=== PATIENT | female | born 1955 | race Caucasian/White ===

== ENCOUNTER 2019-01-12 15:44 | Emergency (ER) | payer OTHER ==
[~2019-01-12] VITALS: Ht 185.4 cm; Wt 72.6 kg
--- OUTSIDE RECORDS SUMMARY | ~2019-01-12 | XMS | Encounter Summary ---
Demographics + + + | Address | [address] | | | [place] [address] | + + + | Home Phone | | + + + | Preferred Language | Unknown | + + + | Marital Status | | + + + | Buddhist Affiliation | Unknown | + + + | Race | White | + + + | Ethnic Group | Not or | + + + Author + + + | Author | [facility] | + + + | Organization | [facility] | + + + | Address | Unknown | + + + | Phone | Unavailable | + + + Support + + +---------+ + | Name | Relationship | Address | Phone | + + +---------+ + | Freeman Mcdonnell | ECON | Unknown | | + + +---------+ + Care Team Providers + +------+ + | Care Partnership Development Manager Name | Role | Phone | + +------+ + | Hemanth Hope | PCP | | + +------+ + Encounter Details +--------+ + + + + | Date | Type | Department | Care Team | Description | +--------+ + + + + | 11/08/ | Inside | [facility] | Hemanth Hope, | | | 2018 | Referral | [facility] [address] | | | | Order | [address] | [facility], [place] | | | | | [place] | [address] | | | | | [address] | | | +--------+ + + + + Social History + +-------+ +--------+------+ | Tobacco Use | Types | Packs/Day | Years | Date | | | | | Used | | + +-------+ +--------+------+ | Never Smoker | | | | | + +-------+ +--------+------+ + + + | Sex Assigned at | Date Recorded | | | | + + + | Not on file | | + + + + + + + | Job Start Date | Occupation | Industry | + + + + | Not on file | Not on file | Not on file | + + + + + + + + | Travel History | Travel Start | Travel End | + + + + + + | No recent travel history available. | + + documented as of this encounter Plan of Treatment Not on filedocumented as of this encounter Visit Diagnoses + + | Diagnosis | + + | Osteopenia, unspecified location - Primary | + + documented in this encounter"
--- OUTSIDE RECORDS SUMMARY | ~2019-01-12 | XMS | Encounter Summary ---
Demographics + + + | Address | [address] | | | [place] [address] | + + + | Home Phone | | + + + | Preferred Language | Unknown | + + + | Marital Status | | + + + | Mormonism Affiliation | Unknown | + + + | Race | White | + + + | Ethnic Group | Not or | + + + Author + + + | Author | [facility] | + + + | Organization | [facility] | + + + | Address | Unknown | + + + | Phone | Unavailable | + + + Support + + +---------+ + | Name | Relationship | Address | Phone | + + +---------+ + | Freeman Mcdonnell | ECON | Unknown | | + + +---------+ + Care Team Providers + +------+ + | Care Chief Inspector Name | Role | Phone | + +------+ + | Blake Weber | PCP | Unavailable | + +------+ + Encounter Details +--------+ + + + + | Date | Type | Department | Care Team | Description | +--------+ + + + + | 10/31/ | Telephone | Otolaryngology | Angeles Titus, | | | 2006 | | Endocrinology | MD [address] | | | | | Thyroid Services at | [facility] | | | | | PPV [address] | [place], [place] | | | | | [facility] | [address] | | | | | Mailcode: [id number] | [phone] | | | | | [facility] | | | | | | [place], [place] | | | | | | [address] | | | | | | [phone] | | | +--------+ + + + + Social History + +-------+ +--------+------+ | Tobacco Use | Types | Packs/Day | Years | Date | | | | | Used | | + +-------+ +--------+------+ | Never Assessed | | | | | + +-------+ [...] filedocumented as of this encounter Visit Diagnoses Not on filedocumented in this encounter"
--- OUTSIDE RECORDS SUMMARY | ~2019-01-12 | XMS | Encounter Summary ---
Demographics + + + | Address | [address] | | | [place] [address] | + + + | Home Phone | | + + + | Preferred Language | Unknown | + + + | Marital Status | | + + + | Confucianism Affiliation | Unknown | + + + | Race | White | + + + | Ethnic Group | Not or | + + + Author + + + | Author | [facility] | + + + | Organization | [facility] | + + + | Address | Unknown | + + + | Phone | Unavailable | + + + Support + + +---------+ + | Name | Relationship | Address | Phone | + + +---------+ + | Freeman Mcdonnell | ECON | Unknown | | + + +---------+ + Care Team Providers + +------+ + | Care Chief Drafter Name | Role | Phone | + +------+ + | Blake Weber | PCP | Unavailable | + +------+ + Encounter Details +--------+ + + + + | Date | Type | Department | Care Team | Description | +--------+ + + + + | 10/31/ | Abstract | Otolaryngology | Angeles Titus, | | | 2006 | | Endocrinology | MD [address] | | | | | Thyroid Services at | [facility] [address] | | | | | PPV [address] | [place], [place] | | | | | [facility] [address] | [address] | | | | | Mailcode: [id number] | [phone] | | | | | [facility] | | | | | | [place], [place] | | | | | | [address] | | | | | | [phone] | | | +--------+ + + + [...] Not on filedocumented as of this encounter Procedures + +--------+ + + + | Procedure Name | Priori | Date/Time | Associated Diagnosis | Comments | | | ty | | | | + +--------+ + + + | FREE T4 | Routin | 10/21/2006 | | Results for this | | | e | | | procedure are in the | | | | | | results section. | + +--------+ + + + | TSH | Routin | 10/21/2006 | | Results for this | | | e | | | procedure are in the | | | | | | results section. | + +--------+ + + + documented in this encounter Results TSH-THYROID STIM HORMONE (10/21/2006) + + + + + + | Component | Value | Ref Range | Performed | Pathologist | | | | | At | Signature | + + + + + + | TSH | 0.25 (A) | 0.34 - 5.6 | OUTSIDE LAB | | | | | uIU/ml | | | + + + + + + + + | Specimen | + + | | + + + +---------+ + + | Performing | Address | City/State/Zipcode | Phone Number | | Organization | | | | + +---------+ + + | NON [facility] | | | | + +---------+ + + | OUTSIDE LAB | | | | + +---------+ + + FREE T4, SERUM (10/21/2006) + +-------+ + + + | Component | Value | Ref Range | Performed | Pathologist | | | | | At | Signature | + +-------+ + + + | FREE T4, | 0.9 | 0.58 - 1.64 | OUTSIDE LAB | | | SERUM | | ng/dL | | | + +-------+ + + + + + | Specimen | + + | | + + + +---------+ + + | Performing | Address | City/State/Zipcode | Phone Number | | Organization | | | | + +---------+ + + | NON [facility] | | | | + +---------+ + + | OUTSIDE LAB | | | | + +---------+ + + documented in this encounter Visit Diagnoses Not on filedocumented in this encounter"
--- OUTSIDE RECORDS SUMMARY | ~2019-01-12 | XMS | Encounter Summary ---
Demographics + + + | Address | [address] | | | [place] [address] | + + + | Home Phone | | + + + | Preferred Language | Unknown | + + + | Marital Status | | + + + | Jew Affiliation | Unknown | + + + | Race | White | + + + | Ethnic Group | Not or | + + + Author + + + | Author | [facility] | + + + | Organization | [facility] | + + + | Address | Unknown | + + + | Phone | Unavailable | + + + Support + + +---------+ + | Name | Relationship | Address | Phone | + + +---------+ + | Freeman Mcdonnell | ECON | Unknown | | + + +---------+ + Care Team Providers + +------+ + | Care Laboratory Operations Coordinator Name | Role | Phone | + +------+ + | Blake Weber | PCP | Unavailable | + +------+ + Encounter Details +--------+ + + + + | Date | Type | Department | Care Team | Description | +--------+ + + + + | 10/03/ | Telephone | Otolaryngology | Angeles Titus, | | | 2006 | | Thyroid Services at | MD [address] | | | | | PPV [address] | [address] | | | | | [address] | [place], [place] | | | | | Mailcode: [id number] | [address] | | | | | [facility] | [phone] | | | | | [place], [place] | | | | | | [address] | | | | | | [phone] | | | +--------+ + + + [...]
--- OUTSIDE RECORDS SUMMARY | ~2019-01-12 | XMS | Encounter Summary ---
Demographics + + + | Address | [address] | | | [place] [address] | + + + | Home Phone | | + + + | Preferred Language | Unknown | + + + | Marital Status | | + + + | Christian Affiliation | Unknown | + + + | Race | White | + + + | Ethnic Group | Not or | + + + Author + + + | Author | [facility] | + + + | Organization | [facility] | + + + | Address | Unknown | + + + | Phone | Unavailable | + + + Support + + +---------+ + | Name | Relationship | Address | Phone | + + +---------+ + | Freeman Mcdonnell | ECON | Unknown | | + + +---------+ + Care Team Providers + +------+ + | Care Airplane Navigator Name | Role | Phone | + [...] | | | Thyroid Services at | [facility] | | | | | PPV [address] | [place], [place] | | | | | [facility] | [address] | | | | | Mailcode: [id number] | [phone] | | | | | [facility] | | | | | | [place], [place] | | | | | | [address] | | | | | | [phone] | | | +--------+ + + + [...]
--- OUTSIDE RECORDS SUMMARY | ~2019-01-12 | XMS | Encounter Summary ---
Demographics + + + | Address | [address] | | | [place] [address] | + + + | Home Phone | | + + + | Preferred Language | Unknown | + + + | Marital Status | | + + + | Jainism Affiliation | Unknown | + + + | Race | White | + + + | Ethnic Group | Not or | + + + Author + + + | Author | [facility] | + + + | Organization | [facility] | + + + | Address | Unknown | + + + | Phone | Unavailable | + + + Support + + +---------+ + | Name | Relationship | Address | Phone | + + +---------+ + | Freeman Mcdonnell | ECON | Unknown | | + + +---------+ + Care Team Providers + +------+ + | Care [employer] Compliance Internship Name | Role | Phone | + +------+ + | Blake Weber PCP | Unavailable | + +------+ + Encounter Details +--------+ + + + + | Date | Type | Department | Care Team | Description | +--------+ + + + + | 08/08/ | Results | LAB CORE [address] | Marcos [address]e | | | 1998 | Only | [address] | [phone] | | | | | [place], [place] | | | | | | [address] | | | | | | [phone] | | | +--------+ + + + [...] | + +--------+ + + + | DERMATOPATHOLOGY(CON | Routin | 08/08/1998 | | Results for this | | SULT) | e | | | procedure are in the | | | | | | results section. | + +--------+ + + + documented in this encounter Results DERMATOPATHOLOGY(CONSULT) (08/08/1998) + + + + + + | Component | Value | Ref Range | Performed | Pathologist | | | | | At | Signature | + + + + + + | DERMATOPATH | SOURCE OF SPECIMEN: SEE | | [facility] | | | (CONSULT) | RESULTS | | DEPARTMENT | | | | Preliminary | | OF | | | | History:CLINICAL | | PATHOLOGY | | | | HISTORYShave, Rt. | | | | | | superior eyebrow; crusty | | | | | | papule; LPLK, atypical | | | | | | melanocytes? | | | | | | Dear Fady: I agree | | | | | | entirely with you | | | | | | regarding Salena | | | | | | Sathya's superiorright | | | | | | eyebrow skin biopsy | | | | | | where there is focal | | | | | | parakeratosis, | | | | | | hyper-granulosis, | | | | | | epidermal hyperplasia, | | | | | | thickening of the | | | | | | papillary dermis ramos | | | | | | band-like | | | | | | lymphohistiocytic | | | | | | infiltrate throughout | | | | | | the upper part of | | | | | | thedermis. FINAL | | | | | | DIAGNOSISLICHEN | | | | | | PLANUS-LIKE | | | | | | KERATOSIS. There | | | | | | is no evidence to | | | | | | suggest a primary | | | | | | melanocytic neoplasm, | | | | | | such asmelanoma. | | | | | | Thanks for referring | | | | | | this consultation.1 | | | | | | slide [id number] | | | | | | returned to | | | | | | Toni. | | | | | | CRW:mm | | | | | | 08/12/98 My | | | | | | electronic signature | | | | | | indicates that I have | | | | | | personally reviewed | | | | | | alldiagnostic slides, | | | | | | the gross and/or | | | | | | microscopic portion of | | | | | | thisreport and | | | | | | formulated the final | | | | | | diagnosis. | | | | + + + + + + + + | Specimen | + + | Other | + + + + + + + | Performing | Address | City/State/Zipcode | Phone Number | | Organization | | | | + + + + + | [facility] | [address] | [place] [address] | | | PATHOLOGY | [place] | | | + + + + + | [facility] | [address] | [place] [address] | | | PATHOLOGY | [place] | | | + + + + + documented in this encounter Visit Diagnoses Not on filedocumented in this encounter"
--- OUTSIDE RECORDS SUMMARY | ~2019-01-12 | XMS | Encounter Summary ---
Demographics + + + | Address | [address] | | | [place] [address] | + + + | Home Phone | | + + + | Preferred Language | Unknown | + + + | Marital Status | | + + + | Gnosticist Affiliation | Unknown | + + + | Race | White | + + + | Ethnic Group | Not or | + + + Author + + + | Author | [facility] | + + + | Organization | [facility] | + + + | Address | Unknown | + + + | Phone | Unavailable | + + + Support + + +---------+ + | Name | Relationship | Address | Phone | + + +---------+ + | Freeman Mcdonnell | ECON | Unknown | | + + +---------+ + Care Team Providers + +------+ + | Care Golf Superintendent Name | Role | Phone | + +------+ + | Hemanth Hope | PCP | | + +------+ + Encounter Details +--------+ + + + + | Date | Type | Department | Care Team | Description | +--------+ + + + + | 03/22/ | Ancillary | [facility] | | | | 2004 | Registratio | Practice [address] | | | | | n | [facility] | | | | | | [place] [address] | | | | | | [phone] | | | +--------+ + + + [...]
--- OUTSIDE RECORDS SUMMARY | ~2019-01-12 | XMS | Encounter Summary ---
Demographics + + + | Address | [address] | | | [place] [address] | + + + | Home Phone | | + + + | Preferred Language | Unknown | + + + | Marital Status | | + + + | Yazidi Affiliation | Unknown | + + + | Race | White | + + + | Ethnic Group | Not or | + + + Author + + + | Organization | Unknown | + + + | Address | Unknown | + + + | Phone | Unavailable | + + + Support + + +---------+ + | Name | Relationship | Address | Phone | + + +---------+ + | Freeman Newberry | ECON | Unknown | | + + +---------+ + Care Team Providers + +------+ + | Care Middleware Developer Name | Role | Phone | + +------+ + PCP | Unavailable | + +------+ + Encounter Details +--------+ + + + + | Date | Type | Department | Care Team | Description | +--------+ + + + + | 11/27/ | Letter-Reyes | | Letters, Other | Letters | | 2003 | scribed | | | | +--------+ + + + [...] + + documented as of this encounter Progress Notes Interface, Physical Therapist In - 10/08/2005 3:04 AM [place] [facility] [place] [address] [place], [place] [address] or November 27, 2002 Cesia Delatorre [facility] [address] [place] [id number] RE: SALENA NEWBERRY MR #: [id number] Dear Dr. Delatorre: Thank you for your recent referral of your patient, Salena Newberry, to the Thyroid Tumor Clinic. I saw the patient with my fellow, Dr. Cole Jalloh. We discussed her history, performed a physical examination, and discussed the assessment and plan. His detailed note on this will be sent to you separately. However, I wanted to summarize our results and discuss our recommendations. As you are aware, she was diagnosed with papillary thyroid cancer several years ago, and on subsequent followup, scans have not shown evidence of recurrence. She remains on thyroid hormone suppression which she has tolerated without known problems; however, there is some concern about osteoporosis in the family. Therefore, one question that was raised is whether or not she needs to be on this much thyroid hormone suppression and what degree of followup on her thyroid cancer is necessary. She does have some mild symptoms which could easily be related to hypothyroidism and most notable are some mild palpitations, early a.m. awakening, and significant muscle tension most notable in the upper back and neck area. She remains on levothyroxine at 200 mcg a day, and her last TSH did show suppressed levels with a TSH of 0.03. Of note, she has a very interesting family history with a father who had a diagnosis of thyroid cancer, multiple myeloma, and then of a renal carcinoma. This is important to understand given that there are familial forms of thyroid cancer including familial papillary thyroid cancers. With familial papillary cancer syndromes, they appear to be a RET gale-oncogene mutation and do not appear to increase the malignant tendencies of thyroid cancer. We did review Salena's pathology report, and this indicate a papillary thyroid cancer and not a medullary thyroid cancer; so, we are not currently concerned about a familial endocrine syndrome that would include medullary thyroid cancer. However, it would be interesting to get information on her father's thyroid cancer just to make sure this is not a concern. I will ask Salena to try and find information on her father's thyroid cancer. However, assuming that this is papillary thyroid cancer even a familial papillary thyroid cancer syndrome, she has no evidence of recurrence, and my recommendation to her is to get a baseline thyroglobulin measurement. This is a very sensitive way of documenting any recurrent thyroid tissue. We have been using this routinely for the last few years and along with a TSH value can serve as a good yearly screening test. We did this and her baseline thyroglobulin did come back undetectable again consistent with no evidence of recurrent thyroid cancer. If it had been measurable, I would have recommended a stimulated thyroglobulin test along with a repeat radioactive iodine scan to look for evidence of recurrent disease. However, since it is negative, I do not recommend this and instead feel that she should have a yearly neck exam, TSH evaluation, and thyroglobulin evaluation. Because of her low risk of recurrence, but risks for other complications due to the thyroid hormone, I would recommend decreasing her current l-thyroxine dose to 0.175 to 0.188 mg a day to bring her TSH up closer to the normal range. What this would do would be to shift the focus of therapy to prevention of recurrence but also prevention of complications related to the thyroid hormone. If there is evidence of recurrence in the future, we would need to reevaluate her risk and potentially increase her thyroid hormone dose, but at this time, I would recommend decreasing her thyroid dose and bringing the TSH in the range of 0.3 to 0.6. In addition, she wanted to know when a repeat bone densitometry test should be done. Her previous one showed that she had excellent higher than normal bone mass. This is good, but she will be at a risk for bone loss when she enters menopause. Therefore, we have recommended that when menopause begins, she does have a repeat bone densitometry evaluation. Finally, she notes that she has been on control pills for some time but is not having withdrawal bleeding. This is not consistent with her degree of hypothyroidism, although it could certainly be worsened by it. I would recommend that this be evaluated to make sure that this is not due to an obstruction of the outflow tract or other unrelated problems, and one easy response would be to make sure she does respond to her Provera challenge. Therefore, at this time, she has no evidence of recurrent thyroid cancer and appears to be at low risk for this. I would like to see the results of her father's thyroid cancer pathology, but feel that in general, she is at very low risk of recurrence and would recommend decreasing her thyroid hormone dose, to keep her TSH in the more normal range, and then have yearly followup. If you have questions regarding this, please call me. Again, it was a pleasure to meet your patient. Sincerely, Angeles Romero M.D. SHILPI / LILIBETH [id number] / [id number] / [id number] / Tdocumented in this encounter Plan of Treatment Not on filedocumented as of this encounter Visit Diagnoses Not on filedocumented in this encounter"
--- OUTSIDE RECORDS SUMMARY | ~2019-01-12 | XMS | Encounter Summary ---
Demographics + + + | Address | [address] | | | [place] [address] | + + + | Home Phone | | + + + | Preferred Language | Unknown | + + + | Marital Status | | + + + | Taoist Affiliation | Unknown | + + + [...] Team Providers + +------+ + | Care Production Tester Name | Role | Phone | + [...] as of this encounter Progress Notes Interface, Motel Keeper In - 10/08/2005 3:04 AM [place]H [place] [facility] [place] [address] [place], [place] [address] or November 27, 2002 Cesia Delatorre [facility] [address] [place] [address] RE: SALENA NEWBERRY MR #: [id number] Dear Dr. Delatorre: Thank you for your [...] Sincerely, Angeles Romero M.D. SHILPI / LILIBETH [id number] / [id number] / [id number] / Tdocumented in this encounter Plan of Treatment Not on filedocumented as of this encounter Visit Diagnoses Not on filedocumented in this encounter"
--- OUTSIDE RECORDS SUMMARY | ~2019-01-12 | XMS | Encounter Summary ---
Demographics + + + | Address | [address] | | | [place] [address] | + + + | Home Phone | | + + + | Preferred Language | Unknown | + + + | Marital Status | | + + + | Adventist Affiliation | Unknown | + + + | Race | White | + + + | Ethnic Group | Not or | + + + Author + + + | Author | [facility] | + + + | Organization | [facility] | + + + | Address | Unknown | + + + | Phone | Unavailable | + + + Support + + +---------+ + | Name | Relationship | Address | Phone | + + +---------+ + | Freeman Mcdonnell | ECON | Unknown | | + + +---------+ + Care Team Providers + +------+ + | Care Games Dealer Name | Role | Phone | + +------+ + | Blake Weber | PCP | Unavailable | + +------+ + Encounter Details +--------+ + + + + | Date | Type | Department | Care Team | Description | +--------+ + + + + | 10/11/ | Telephone | Otolaryngology | Angeles Titus, | | | 2006 | | Thyroid Services at | MD [address] | | | | | PPV [address] | [address] | | | | | [address] | [place], [place] | | | | | Mailcode: [id number] | [address] | | | | | [facility] | [phone] | | | | | [place], [place] | | | | | | [address] | | | | | | [phone] | | | +--------+ + + + [...]
--- OUTSIDE RECORDS SUMMARY | ~2019-01-12 | XMS | Encounter Summary ---
Demographics + + + | Address | [address] | | | [place] [address] | + + + | Home Phone | | + + + | Preferred Language | Unknown | + + + | Marital Status | | + + + | Synagogue Affiliation | Unknown | + + + [...] Team Providers + +------+ + | Care Mechanical Design Engineer Products Name | Role | Phone | + +------+ + PCP | Unavailable | + +------+ + Encounter Details +--------+ + + + + | Date | Type | Department | Care Team | Description | +--------+ + + + + | 11/24/ | Office | | Report, Outpatient | Progress Note | | 2003 | Visit-Trans | | Consultation | | | | cribed | | | | +--------+ + + [...] as of this encounter Progress Notes Interface, Database Administrator In - 10/08/2005 3:04 AM PDT [place] [facility] OUTPATIENT CONSULTATION REPORT [phone] [place], [place] [address] or REFERRED FROM AND FAXED TO: Not dictated. REFERRED TO: [facility] CONSULTING PHYSICIAN: Cole Jalloh M.D. PATIENT: Christophe Mcdonnell MR#: [id number] DATE OF CONSULTATION: November 24, 2002 REASON FOR CONSULTATION: Status post papillary thyroid cancer followup. 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 Subsequently, this was treated with radioactive iodine and noted to have negative uptake scans in 1987 and 1993 as well as additional tests which we do not have any objective evidence of. She has not had recent followup thyroglobulins. She is currently on levothyroxine suppression at 200 mcg per day. She has had symptoms of muscle tension and a feeling of anxiety for approximately two years and without fatigue and heat intolerance, weight changes, appetite changes, nausea, vomiting, diarrhea, or swelling in her extremities. Per her primary care provider, her TSH range has been roughly less than 0 with a recent TSH in March 2002 of 0.216. The patient has a family history of osteoporosis. A bone density test that was done in 2000 revealed high-normal T-scores in the lumbar region and a slightly low-normal T-score in the trochanter but not consistent with osteopenia. She has no history of fractures. She also notes very occasional palpitations. She has no heart disease in her immediate family. She notes that she has been amenorrheic for two years. She is currently on estrogen with a one-week withdrawal per month and a history of fibroids which were removed previously. PAST MEDICAL HISTORY: There are no other known significant past medical history except as described above. PAST SURGERIES: 1. Fibroid surgery. 2. Complete thyroidectomy. MEDICATIONS: 1. Levothyroxine 200 mcg q.d. 2. Aurelia D. 3. Estrogen. ALLERGIES: None. SOCIAL HISTORY: She is a nonsmoker and occasional alcohol drinker. She does not use recreational drugs. She uses and magnesium herbal medications. FAMILY HISTORY: Family history includes father with thyroid cancer of unknown histological characterization, although the patient believes it was a different type from hers. Also, a multiple myeloma. Her mom has a history of heart and lung disease. Her brother has a history of cystic fibrosis. PHYSICAL EXAMINATION: GENERAL APPEARANCE: The patient is a well-nourished and well-developed white female with no acute distress and no respiratory distress. VITAL SIGNS: Blood pressure is 120/82. Weight is 160. She is alert and oriented times three and appropriate to the examination. HEENT EXAMINATION: Reveals hair that is not noted to be abnormal in the texture or amount. Pupils were equal, round and reactive to light. Extraocular movements intact. There is no lid lag. There is no obvious exophthalmus or eye irritation. Oral mucosa is moist. NECK: Supple. No lymphadenopathy of the neck is noted. There is no thyromegaly. There is noted to be some tension in the paraspinal neck muscles. CHEST EXAMINATION: Clear to auscultation and percussion bilaterally. CARDIOVASCULAR EXAMINATION: S1 and S2 positive. No murmurs, rubs, or gallops. Rate is regular. There is no tachycardia. ABDOMEN EXAMINATION: Soft. Positive bowel sounds. EXTREMITIES: No cyanosis, clubbing or edema. Reflexes are +2 in the biceps as well as the knee distribution. There is a very fine tremor present. There is no proximal muscle weakness noted. 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 There are two issues here: 1. Regarding the followup for her thyroid cancer: This patient is considered to be at low risk of recurrence given her initial surgical pathology as well as her multiple normal uptake scans on followup. She is currently on thyroid suppression with some clinical evidence of hyperthyroidism. Given her low risk of recurrence, we recommend thyroid suppression at approximately 0.2 to 0.5 TSH levels as opposed to the standard of less than 0.1. This may assist in helping her symptoms that may be consistent with hypertension. Additionally, we recommend followup yearly thyroid levels as well as TSH levels and a yearly neck examination. Regarding the affects of the hyperthyroidism, these will include affects on bone as well as cardiac disease. Regarding her bone risk, she seems to have readings of high-normal from a baseline level done premenopausally, and we recommend a followup bone density examination at the time that she enters menopause with calcium supplementation, estrogen therapy if appropriate, and diphosphonates if appropriate at that time and if needed. Secondly, regarding cardiac disease, her mom has a history of heart disease in their family, and we recommend appropriate minimization of endothelial risk with the control and blood pressure control if needed. 2. Regarding her amenorrhea: Her amenorrhea of two years is not explained by her slightly high thyroid level. We do note the his of fibroids as well as the fact that she is Desogen, although she should be having some form of monthly bleeding. We recommend further evaluation of this with the Provera challenge or vaginal ultrasound to evaluate her uterus. Thank you for the consult. This patient was seen and examined in the critical parts of the history and physical by the staff. Cole Jalloh M.D. Angeles Romero M.D. Attending Physician [id number] cc: Cesia Delatorre M.D. [address] [place] [id number] Christophe Mcdonnell, patient [id number] signed by Interface, Database Administrator In at 10/08/2005 3:04 AM PDTdoc umented in this encounter Plan of Treatment Not on filedocumented as of this encounter Visit Diagnoses Not on filedocumented in this encounter"
--- OUTSIDE RECORDS SUMMARY | ~2019-01-12 | XMS | Encounter Summary ---
Demographics + + + | Address | [address] | | | [place] [address] | + + + | Home Phone | | + + + | Preferred Language | Unknown | + + + | Marital Status | | + + + | Protestant Affiliation | Unknown | + + + | Race | White | + + + | Ethnic Group | Not or | + + + Author + + + | Author | [facility] | + + + | Organization | [facility] | + + + | Address | Unknown | + + + | Phone | Unavailable | + + + Support + + +---------+ + | Name | Relationship | Address | Phone | + + +---------+ + | Freeman Mcdonnell | ECON | Unknown | | + + +---------+ + Care Team Providers + +------+ + | Care Meat Scrubber Name | Role | Phone | + +------+ + | Hemanth Hope | PCP | | + +------+ + Encounter Details +--------+ + + + + | Date | Type | Department | Care Team | Description | +--------+ + + + + | 10/21/ | Results | Otolaryngology | Tomás Garvey MD | | | 2006 | Only | Head and Neck | [address] | | | | | Surgery Services at | [address] | | | | | PPV [address] | [place] [address] | | | | | [address] | [phone] | | | | | Mailcode: PV[address] | | | | | | [facility] | | | | | | [place], [place] | | | | | | [address] | | | | | | [phone] | | | +--------+ + + + [...] | + +--------+ + + + | LAB OTHER | Routin | 10/21/2006 | | Results for this | | | e | 1:18 PM | | procedure are in the | | | | PDT | | results section. | + +--------+ + + + | FREE T4 | Routin | 10/21/2006 | | Results for this | | | e | 1:18 PM | | procedure are in the | | | | PDT | | results section. | + +--------+ + + + documented in this encounter Results FREE T4 (10/21/2006 1:18 PM PDT) + + + + + + | Component | Value | Ref Range | Performed | Pathologist | | | | | At | Signature | + + + + + + | FREE T4, | 0.90 | 0.58 - 1.64 | [facility] | | | SERUM | | NG/DL | A MEDICAL | | | | | | CENTER | | + + + + + + | TSH | 0.25 (L) | 0.34 - 5.6 | [facility] | | | | | UIU/ML | A MEDICAL | | | | | | CENTER | | + + + + + + + + | Specimen | + + | | + + + + + + + | Performing | Address | City/State/Zipcode | Phone Number | | Organization | | | | + + + + + | [facility] | | | | | LABORATORY | | | | + + + + + | [facility] | [address] [place] | [place] [address] | | | MEDICAL CENTER | Streets | | | + + + + + LAB OTHER (10/21/2006 1:18 PM PDT) + + + + + + | Component | Value | Ref Range | Performed | Pathologist | | | | | At | Signature | + + + + + + | MISC REF | Comment: COMPREHENSIVE | | [facility] | | | TEST RESULT | THYROGLOBULIN | | A MEDICAL | | | | | | CENTER | | | | | | | | | | | | | | | | REFERENCE RANGE | | | | | | ANTI-THYROGLOBULIN | | | | | | ANTIBODIES | | | | | | (Anti-Tg) 2.5 | | | | | | 0-100 IU/mL ALL | | | | | | THYROGLOBULIN | | | | | | (TG-SIERRA) | | | | | | <2.0 0-39 | | | | | | ng/mL ADUL For patients | | | | | | with no thyroid remnant, | | | | | | or evidence ofdisease, | | | | | | thyroglobulin values are | | | | | | generally less than6 | | | | | | ng/mL by SIERRA when | | | | | | patients are on | | | | | | withdrawal of | | | | | | afteThyrogen(TM). | | | | | | However, it should be | | | | | | noted that most | | | | | | clstudies recomment that | | | | | | thyroglobulin | | | | | | measurement be | | | | | | usconjunction with | | | | | | radioactive thyroid | | | | | | scan. PERCENT | | | | | | THYROGLOBULIN | | | | | | RECOVERY | | | | | | | | | | | | 115 85-11 | | | | | | 5%@ TEST RUN BY [employer] | | | | | | [facility] | | | | | | [facility] | | | | + + + + + + + + | Specimen | + + | | + + + + + + + | Performing | Address | City/State/Zipcode | Phone Number | | Organization | | | | + + + + + | [facility] | | | | | LABORATORY | | | | + + + + + | [place] | And | [place] [address] | | | [facility] | [facility] | | | + + + + + documented in this encounter Visit Diagnoses Not on filedocumented in this encounter"
--- OUTSIDE RECORDS SUMMARY | ~2019-01-12 | XMS | Encounter Summary ---
Demographics + + + | Address | [address] | | | [place] [address] | + + + | Home Phone | | + + + | Preferred Language | Unknown | + + + | Marital Status | | + + + | Yazidism Affiliation | Unknown | + + + | Race | White | + + + | Ethnic Group | Not or | + + + Author + + + | Author | [facility] | + + + | Organization | [facility] | + + + | Address | Unknown | + + + | Phone | Unavailable | + + + Support + + +---------+ + | Name | Relationship | Address | Phone | + + +---------+ + | Freeman Mcdonnell | ECON | Unknown | | + + +---------+ + Care Team Providers + +------+ + | Care Practice Nurse Name | Role | Phone | + +------+ + | Blake Weber | PCP | Unavailable | + +------+ + Encounter Details +--------+ + + + + | Date | Type | Department | Care Team | Description | +--------+ + + + + | 12/05/ | Documentati | Otolaryngology | Tomás Garvey MD | | | 2006 | on | Head and Neck | [address] [facility] | | | | | Surgery Services at | [facility] | | | | | [address] | [place] [address] | | | | | [address] | [phone] | | | | | Mailcode: PV01 | | | | | | [facility] | | | | | | [place], [place] | | | | | | [address] | | | | | | [phone] | | | +--------+ + + + [...]
--- OUTSIDE RECORDS SUMMARY | ~2019-01-12 | XMS | Encounter Summary ---
Demographics + + + | Address | [address] | | | [place] [address] | + + + | Home Phone | | + + + | Preferred Language | Unknown | + + + | Marital Status | | + + + | Mandaen Affiliation | Unknown | + + + | Race | White | + + + | Ethnic Group | Not or | + + + Author + + + | Author | [facility] | + + + | Organization | [facility] | + + + | Address | Unknown | + + + | Phone | Unavailable | + + + Support + + +---------+ + | Name | Relationship | Address | Phone | + + +---------+ + | Freeman Mcdonnell | ECON | Unknown | | + + +---------+ + Care Team Providers + +------+ + | Care Architecture Drafter Name | Role | Phone | [...] | Only | [address] | [phone] | | | | | [place], [place] | | | | | | [address] | | | | | | [phone] | | | +--------+ + + + [...] | | | | | | slide [id number] | | | | | | returned [...] | + + + + + | [facility] | [address] | [place] [address] | | | PATHOLOGY | MYRA [place] | | | + + + + + | [facility] | [address] | [place] [address] | | | PATHOLOGY | MYRA [place] | | | + + + + + documented in this encounter Visit Diagnoses Not on filedocumented in this encounter"
--- OUTSIDE RECORDS SUMMARY | ~2019-01-12 | XMS | Encounter Summary ---
Demographics + + + | Address | [address] | | | [place] [address] | + + + | Home Phone | | + + + | Preferred Language | Unknown | + + + | Marital Status | | + + + | Evangelical Affiliation | Unknown | + + + | Race | White | + + + | Ethnic Group | Not or | + + + Author + + + | Author | [facility] | + + + | Organization | [facility] | + + + | Address | Unknown | + + + | Phone | Unavailable | + + + Support + + +---------+ + | Name | Relationship | Address | Phone | + + +---------+ + | Freeman Newberry | ECON | Unknown | | + + +---------+ + Care Team Providers + +------+ + | Care Slitter Helper Name | Role | Phone | + +------+ + | Hemanth Hope | PCP | | + +------+ + Encounter Details +--------+ + + + + | Date | Type | Department | Care Team | Description | +--------+ + + + + | 03/27/ | Procedure - | [facility] [address] | Freeman Kauffman, | ECHO Report | | 2010 | | [address] | MD [address] | | | | Transcribed | [place] | [place] | | | | | [address] | [address] | | | | | | [phone] | | | | | | | | +--------+ + + [...] | + +--------+ + + + | ECHO PROCEDURE | | 03/27/2011 | | Results for this | | | | 9:32 AM | | procedure are in the | | | | PST | | results section. | + +--------+ + + + documented in this encounter Results ECHO PROCEDURE (03/27/2011 9:32 AM PST) + + | Transcriptions | + + | Fereman Kauffman MD - 03/28/2011 5:50 AM [facility] | | ECHOCARDIOGRAM [id number] [place] [address] | | CONISALENA SDATE OF EXAM: March 27, 2011ORDERING PROVIDER: | | KACI GriderIAGNOSIS: Fluttering in chest.HT: WT: BSA: 2.0 | | m2.CASKET TRIMMER: Natalia Carroll DIMENSIONS: | | NORMAL VALUES:Left ventricle End Diastole 4.2 cm. 3.5 - 5.6 cmEnd | | Systole 2.3 cm.% Fractional shortening 45%. Greater than | | 25%Left atrium 2.5 cm. 1.9 - 4.0 cm1.2 - 2.2 | | cm/gk7Xfmnxm root 3.2 cm. 2.0 - 3.7 cm1.2 - 2.2 | | cm/sp1CNKG VENTRICULAR WALL THICKNESS/FUNCTION:Posterior wall Diastole | | 0.6 - 1.1 cmInterventricular septum Diastole 0.6 - 1.1 | | cmE Point to septal separation (EPSS) 0.3 cm Less than .6 cmVALVULAR | | PARAMETERS:Excursion Greater than 2.0 cmAortic valve Cusp | | separation 2.2 cm. 1.5 - 2.6 cmCOMPARISON ECHOCARDIOGRAM: None.CART/READER: Pick1 | | Aplio KinetiX.INTERPRETATION:1. The study is technically adequate for review. | | Underlying rhythm is normalsinus rhythm with a rate in the 55 range.2. The aortic valve | | is trileaflet with normal excursion of the leaflets. Color-flow is normal. No aortic | | insufficiency. No aortic stenosis seen norsuspected. Aortic V-max 1.1 meters per | | second. LV OT V-max 0.8 meters persecond. LV OT TVI 18 cm. Valve area using the | | continuity equation 2.8 cm2.3. The mitral valve is structurally normal with normal | | excursion of the leaflets,unrestricted motion of the leaflets. Color-flow is normal. | | No mitralregurgitation seen nor suspected. Forward flow Doppler yields E wave 0.6meters | | per second, A-wave 0.6 meters per second. E/A ratio 1.0. Decelerationtime 300 | | milliseconds. Mean gradient 0.8 mmHg. Lateral E prime 11.5. SeptalE prime 9.5. | | Septal E/E prime ratio 6.39.4. The tricuspid valve has normal appearance. Trace | | tricuspid regurgitation, SALENA Finch | | [id number] | | | | | | | | : 57enough to quantitate RV systolic pressure | | adequately due to inadequateenvelope.5. The pulmonic Doppler is a pulmonic V-max of 0.7 | | meters per second.6. The chamber dimensions reveal normal left and right ventricular | | dimensions.The aortic root has normal appearance by visual estimate. The left atrium | | byvisual estimate is normal and left atrium by volume is upper normal at 29mL/meter | | squared.7. Normal left ventricular wall thickness.8. LV systolic function is normal. No | | segmental wall motion abnormalities.Ejection fraction 64% by M-mode. Teichholz at 76% | | by 2D Teichholz. BySimpson planimetry is 67%. No wall motion abnormality seen nor | | suspected.9. The right ventricular systolic function is normal.10.No pericardial | | effusion.11.No intracardiac mass, thrombus or vegetation.12.No pericardial | | effusion.13.No ASD nor VSD.14.IVC collapses normally consistent with normal right atrial | | pressure estimate.INTERPRETATION SUMMARY:1. Technically excellent transthoracic | | echocardiogram.2. Normal chamber dimensions.3. Normal valvular structure and function.4. | | Preserved LV systolic function ejection fraction 70% range with no wall | | motionabnormality suspected.5. Normal left and right atrial pressure estimates.6. No | | previous echocardiogram for comparison.MARLO/MedCirpianoDD: 03/27/2011 22:48:08DT: 03/28/2011 | | 05:41:39Job #: [id number]: Priscilla Whiting, | | IAIN | | | | Electronically Signed | | 03/28/110 | | | | | | | | | | Freeman Juárez | | DalyLU JANE | | [id number] | | | | | | | | : 59 | |enough to quantitate RV systolic pressure adequately due to inadequate | |envelope. | |5. The pulmonic Doppler is a pulmonic V-max of 0.7 meters per second. | |6. The chamber dimensions reveal normal left and right ventricular dimensions. | |The aortic root has normal appearance by visual estimate. The left atrium by | |visual estimate is normal and left atrium by volume is upper normal at 29 | |mL/meter squared. | |7. Normal left ventricular wall thickness. | |8. LV systolic function is normal. No segmental wall motion abnormalities. | |Ejection fraction 64% by M-mode. Teichholz at 76% by 2D Teichholz. By | |Marino planimetry is 67%. No wall motion abnormality seen nor suspected. | |9. The right ventricular systolic function is normal. | |10.No pericardial effusion. | |11.No intracardiac mass, thrombus or vegetation. | |12.No pericardial effusion. | |13.No ASD nor VSD. | |14.IVC collapses normally consistent with normal right atrial pressure estimate. | | | |INTERPRETATION SUMMARY: | |1. Technically excellent transthoracic echocardiogram. | |2. Normal chamber dimensions. | |3. Normal valvular structure and function. | |4. Preserved LV systolic function ejection fraction 70% range with no wall motion | |abnormality suspected. | |5. Normal left and right atrial pressure estimates. | |6. No previous echocardiogram for comparison. | | | | | |MARLO/Radha | | | | | | /[id number] | | | | | |cc: IAIN Grider | | Electronically Signed | |03/28/110 | | | | Freeman Kauffman MD | | | | | | | | | | | | | | | | | | | | | | | | | | | | | | | | | | | | | |NEWBERRYSALENA S | |[id number] | |[id number] | | | | : 59 | + + documented in this encounter Visit Diagnoses Not on filedocumented in this encounter"
--- OUTSIDE RECORDS SUMMARY | ~2019-01-12 | XMS | Encounter Summary ---
Demographics + + + | Address | [address] | | | [place] [address] | + + + | Home Phone | | + + + | Preferred Language | Unknown | + + + | Marital Status | | + + + | Sikh Affiliation | Unknown | + + + | Race | White | + + + | Ethnic Group | Not or | + + + Author + + + | Author | [facility] | + + + | Organization | [facility] | + + + | Address | Unknown | + + + | Phone | Unavailable | + + + Support + + +---------+ + | Name | Relationship | Address | Phone | + + +---------+ + | Freeman Mcdonnell | ECON | Unknown | | + + +---------+ + Care Team Providers + +------+ + | Care Patcher Wood Welder Name | Role | Phone | + [...] | | | [address] | [place], [place] | | | | | Mailcode: [address] | [address] | | | | | [facility] | [phone] | | | | | [place], [place] | | | | | | [address] | | | | | | [phone] | | | +--------+ + + + [...]
--- OUTSIDE RECORDS SUMMARY | ~2019-01-12 | XMS | Encounter Summary ---
Demographics + + + | Address | [address] | | | [place] [address] | + + + | Home Phone | | + + + | Preferred Language | Unknown | + + + | Marital Status | | + + + | Mandaen Affiliation | Unknown | + + + | Race | White | + + + | Ethnic Group | Not or | + + + Author + + + | Author | [facility] | + + + | Organization | [facility] | + + + | Address | Unknown | + + + | Phone | Unavailable | + + + Support + + +---------+ + | Name | Relationship | Address | Phone | + + +---------+ + | Freeman Mcdonnell | ECON | Unknown | | + + +---------+ + Care Team Providers + +------+ + | Care Insurance Verification Specialist Name | Role | Phone | + [...] | | | Thyroid Services at | [facility] | | | | | [address] | [place], [place] | | | | | [facility] | [address] | | | | | Mailcode: [id number] | [phone] | | | | | [facility] | | | | | | [place], [place] | | | | | | [address] | | | | | | [phone] | | | +--------+ + + + [...]
--- OUTSIDE RECORDS SUMMARY | ~2019-01-12 | XMS | Encounter Summary ---
Demographics + + + | Address | [address] | | | [place] [address] | + + + | Home Phone | | + + + | Preferred Language | Unknown | + + + | Marital Status | | + + + | [employer] Affiliation | Unknown | + + + [...] Team Providers + +------+ + | Care Lumber Kiln Operator Name | Role | Phone | + +------+ + | No Pcp Per Patient | PCP | Unavailable | + +------+ + Encounter Details +--------+ + + + + | Date | Type | Department | Care Team | Description | +--------+ + + + + | 04/10/ | Abstract | [facility] | Erick Busby, | | | 2013 | | [facility] | | | | | | [address] | | | | | | [place] | | | | | | [address] | | | | | | [phone] | | | +--------+ + + + [...]
--- OUTSIDE RECORDS SUMMARY | ~2019-01-12 | XMS | Encounter Summary ---
Demographics + + + | Address | [address] | | | [place] [address] | + + + | Home Phone [...] Team Providers + +------+ + | Care Poultry Slaughterer Name | Role | Phone | + [...] as of this encounter Progress Notes Interface, Size Cutter In - 10/08/2005 3:04 AM PDT [place] [facility] OUTPATIENT CONSULTATION REPORT [address] 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 There are two issues here: 1. Regarding [...] Attending Physician [id number] cc: Cesia Delatorre M.D. [address] [place] [id number] Christophe Mcdonnell, patient [id number] signed by Interface, Size Cutter In at 10/08/2005 3:04 AM PDTdoc umented in this encounter Plan of Treatment Not on filedocumented as of this encounter Visit Diagnoses Not on filedocumented in this encounter"
--- OUTSIDE RECORDS SUMMARY | ~2019-01-12 | XMS | Clinical Summary ---
Demographics + + + | Address | [address] | | | [place] [address] | + + + | Home Phone | | + + + | Preferred Language | Unknown | + + + | Marital Status | | + + + | Baptist Affiliation | Unknown | + + + | Race | White | + + + | Ethnic Group | Not or | + + + Author + + + | Author | [facility] | + + + | Organization | [facility] | + + + | Address | Unknown | + + + | Phone | Unavailable | + + + Support + + +---------+ + | Name | Relationship | Address | Phone | + + +---------+ + | Freeman Mcdonnell | ECON | Unknown | | + + +---------+ + Care Team Providers + +------+ + | Care Machine Operations Supervisor Name | Role | Phone | + +------+ + | Hemanth Hope | PCP | | + +------+ + Source Comments [facility] is fully live on both [facility] and [facility] In[facility] Allergies + + + + + + | Active Allergy | Reactions | Severity | Noted | Comments | | | | | Date | | + + + + + + | Meperidine (Pf) | | | 09/06/19 | | | | | | 07 | | + + + + + + Medications + + + +---------+------+------+-------+ | Medication | Sig | Dispensed | Refills | Star | End | Statu | | | | | | t | Date | s | | | | | | Date | | | + + + +---------+------+------+-------+ | ALBUTEROL IN | prn | | 0 | | | Activ | | | | | | | | e | + + + +---------+------+------+-------+ | baclofen 10 mg | Take 10 mg by mouth | | 0 | | | Activ | | oral tablet | three times daily. | | | | | e | + + + +---------+------+------+-------+ | pantoprazole 20 mg | Take 20 mg by mouth | | 0 | | | Activ | | oral tablet,delayed | once daily. | | | | | e | | release (DR/EC) | | | | | | | + + + +---------+------+------+-------+ | levothyroxine 150 | Take 150 mcg by | | 0 | | | Activ | | mcg oral tablet | mouth before | | | | | e | | | breakfast. | | | | | | + + + +---------+------+------+-------+ Active Problems + + + | Problem | Noted Date | + + + | Asthma | 06/13/2014 | + + + | ABMD (anterior basement membrane dystrophy) | 06/13/2014 | + + + | Posterior vitreous detachment of left eye | 04/10/2014 | + + + | Intermittent exotropia, alternating | 04/10/2014 | + + + | Papillary carcinoma of thyroid | 09/05/2006 | + + + Family History + + +------+ + | Medical History | Relation | Name | Comments | + + +------+ + | Additional Family | Brother | | cystic fibrosis | | History | | | | + + +------+ + | Additional Family | Father | | multiple myeloma/thyroid cancer | | History | | | | + + +------+ + | Cancer | Father | | | + + +------+ + | Cataracts | Father | | | + + +------+ + | Cataracts | Mother | | | + + +------+ + | Heart Disease | Mother | | | + + +------+ + | Diabetes | Neg Hx | | | + + +------+ + | Glaucoma | Neg Hx | | | + + +------+ + | Macular degeneration | Neg Hx | | | + + +------+ + + +------+--------+ + | Relation | Name | Status | Comments | + +------+--------+ + | Brother | | | | + +------+--------+ + | Father | | | | + +------+--------+ + | Mother | | | | + +------+--------+ + Social History + +-------+ +--------+------+ | [...] recent travel history available. | + + Last Filed Vital Signs + + + + + | Vital Sign | Reading | Time Taken | Comments | + + + + + | Blood Pressure | 132/76 | 09/05/2006 1:35 PM | | | | | PDT | | + + + + + | Pulse | 73 | 09/05/2006 1:35 PM | | | | | PDT | | + + + + + | Temperature | - | - | | + + + + + | Respiratory Rate | - | - | | + + + + + | Oxygen Saturation | - | - | | + + + + + | Inhaled Oxygen | - | - | | | Concentration | | | | + + + + + | Weight | 73.5 kg (162 lb) | 09/05/2006 1:35 PM | | | | | PDT | | + + + + + | Height | - | - | | + + + + + | Body Mass Index | - | - | | + + + + + Plan of Treatment + + + + + | Health Maintenance | Due Date | Last Done | Comments | + + + + + | Influenza (Flu) | | | | | vaccination (#1) | 9 | | | + + + + + | Pneumococcal | Aged Out | | No longer eligible | | vaccination | | | based on patient's | | | | | age to complete this | | | | | topic | + + + + + Results Not on filefrom Last 3 Months Insurance + +--------+ +--------+ + +------+ | Payer | Benefi | Subscriber | Effect | Phone | Address | Type | | | t Plan | ID | elizabeth | | | | | | / | | Dates | | | | | | Group | | | | | | + +--------+ +--------+ + +------+ | BLUE CROSS BLUE | REGENC | [phone] | | [phone] | [address] | PPO | | SHIELD | E BCBS | x | [phone] | [phone] | [id number] | | | | | | esent | | [place], | | | | | | | | [place] | | | | | | | | [address] | | + +--------+ +--------+ + +------+ + +--------+ +--------+ + + | Guarantor Name | Accoun | Relation to | Date | Phone | Billing Address | | | t Type | Patient | of | | | | | | | | | | + +--------+ +--------+ + + | Salena Mcdonnell | Person | Self | [birth year] | [id number] | | | al/Fam | | 1954 | [phone] | [place] [address] | | | bob | | | 6 (Home) | | + +--------+ +--------+ + +"
--- OUTSIDE RECORDS SUMMARY | ~2019-01-12 | XMS | Encounter Summary ---
Demographics + + + | Address | [address] | | | [place] [address] | + + + | Home Phone | | + + + | Preferred Language | Unknown | + + + | Marital Status | | + + + | Latter-Day Affiliation | Unknown | + + + [...] Team Providers + +------+ + | Care Package Handler Name | Role | Phone | + +------+ + | Blake Weber | PCP | Unavailable | + +------+ + Reason for Visit + + + | Reason | Comments | + + + | New patient | | | consultation | | + + + Benefits Check (Routine) +--------+ + + + + + | Status | Reason | Specialty | Diagnoses / | Referred By | Referred To | | | | | Procedures | Contact | Contact | +--------+ + + + + + | Closed | Specialty | Endocrinology | | Jose Weber, | | | Services | , Diabetes & | | Blake Slade | MD Angeles | | | Required | Metabolism | | [place] | [address] | | | | | | [facility] | [facility] | | | | | | MEDICAL | [address] [place], | | | | | | [facility] | [place] | | | | | | [address] | [address] | | | | | | [place], [place] | Phone: | | | | | | [address] | [phone] | | | | | | | Fax: | | | | | | | [phone] | +--------+ + + + + + Encounter Details +--------+---------+ + + + | Date | Type | Department | Care Team | Description | +--------+---------+ + + + | 09/05/ | Office | Otolaryngology | Angeles Titus, | Papillary Carcinoma | | 2006 | Visit | Endocrinology | MD [address] | of Thyroid (HCC) | | | | Thyroid Services at | [facility] [address] | (Primary Dx) | | | | [address] | [place], [place] | | | | | [facility] [address] | [address] | | | | | Mailcode: [id number] | [phone] | | | | | [facility] | | | | | | [place], [place] | | | | | | [address] | | | | | | [phone] | | | +--------+---------+ + + + Social History + +-------+ [...] + + documented as of this encounter Last Filed Vital Signs + + + [...] + + + documented in this encounter Progress Notes Angeles Titus - 09/05/2006 3:31 PM PDTTHYROID TUMOR CLINIC ENDOCRINOLOGY INITIAL VISIT RFC: fluctuating TSH levels HPI: Ms. Mcdonnell is a 51 yo white female who was referred by Dr. Blake Weber for her fluct uating TSH levels. She has a history of PTC that was diagnosed in 1987, at which time she u nderwent a total thyroidectomy and radioactive iodine treatment. Initial tumor size and nod e status is unknown. She had negative withdrawal whole body scans every year for five years and then every other year for 5 years, last one about ten years ago. In the last 4 years o r so she's had yearly unstimulated thyroglobulin levels that have been undetectable, with un detectable antibodies. She currently denies any neck pain, dysphagia, or masses. She has been on synthroid 200mcg qd since some time mid 2004. She takes it every morning a fter breakfast, which consists of oatmeal and toast. She also takes a MVI every morning wit h breakfast, but no calcium. She denies missing doses. She states she's felt well over the past year, and denies any tremor, heat/cold intolerance. She does have chronic intermitten t palpitations, constipation, and nightsweats which she believes are due to early menopause. PMH: 1. PTC see above 2. Seasonal allergies 3. Mild asthma 4. Depression 5. Hysterectomy for fibroids, 2004 SH: Lives with ; has grown children. No smoking, occasional wine. FH: Dad had thyroid ca, and renal cell ca, but no other endocrine tumors. ROS: Neg x 10 systems except positives in HPI Medications: Synthroid 200mcg qd Aurelia Citalopram Flonase Albuterol PE: 132/76 73 Gen- well, NAD HEENT- no thyroid tissue palpable, no nodes, neck supple CV- rrr s1s2 no m/g Lungs- clear B Abd- soft, pos BS, NT, ND Ext- no edema, warm, dry, no tremor Neuro- prox strenght normal, DTRs 2+ Labs: TSH 07/20 0.084 06/19 0.127 04/21 1.04 2 3.18 03/19 6.71 06/17 0.57 A/P Ms. Mcdonenll is a 51 yo white female who is being referred for fluctuating TSH levels. She is has a history of PTC diagnosed 20 years ago and is s/p thyroidectomy. 1. Fluctuating TSH levels - it appears as though she is taking the synthroid appropriately, and it is not uncommon to see fluctuations of this degree of TSH. The TSH can vary dependi ng on just the time of day the sample is drawn. With her type of thyroid ca there is no con cern that a suppressed TSH could indicate recurrence of cancer. Given the length of time si nce her diagnosis we also discussed adjusting her goal TSH to 0.5 to 1.5 range. Her most re cent TSH was 0.084, and so we will decrease her synthroid to 175 mcg qd, and recheck it in 6 weeks. 2. Papillary thyroid cancer- we also reviewed her history regarding her PTC. She had a tot al thyroidectomy, I-131 treatment, and serial negative withdrawal scans followed by yearly n egative unstimulated thyroglobulin levels and negative antibodies. Overall her prognosis is of course excellent. We do recommend at least every 5 years or so to get a stimulated Tg a nd whole body scan, and so she is due for that. We discussed using thyrogen stimulation, an d the patient is interested in this. Therefore we will set her up for a thyrogen stimulated WBS and Tg level. If this is negative then she will go back to yearly unstimulated thyrog lobulin levels. Angela Alvarado MD Endocrine fellow I have seen and examined this patient with my attending physician Dr. Angeles Titus who ag jayro with my assessment and plan. Pt was seen in conjunction with Endocrinology Fellow, Dr. Angela Alvarado. Please see note below for the full details of the visit. I agree with history, exam, assessment and management p indio as detailed there. Angeles Titus M.D. Cotton Washer, Endocrinology documented in this encoun ter Plan of Treatment + +------+--------+ + + | Name | Type | Priori | Associated Diagnoses | Order Schedule | | | | ty | | | + +------+--------+ + + | FREE T4, SERUM | Lab | Routin | Papillary | Ordered: 09/05/2006 | | | | e | Carcinoma of Thyroid | | | | | | (HCC) | | + +------+--------+ + + | TSH-THYROID STIM | Lab | Routin | Papillary | Ordered: 09/05/2006 | | HORMONE | | e | Carcinoma of Thyroid | | | | | | (HCC) | | + +------+--------+ + + documented as of this encounter Visit Diagnoses + + | Diagnosis | + + | Papillary carcinoma of thyroid (HCC) - Primary Malignant neoplasm of thyroid gland | + + documented in this encounter"
--- OUTSIDE RECORDS SUMMARY | ~2019-01-12 | XMS | Encounter Summary ---
Demographics + + + | Address | [address] | | | [place] [address] | + + + | Home Phone | | + + + | Preferred Language | Unknown | + + + | Marital Status | | + + + | Roman Catholic Affiliation | Unknown | + + + [...] Team Providers + +------+ + | Care Road Packer Operator Name | Role | Phone | [...] | | | | | n | [facility] | | | | | | [place] [address] | | | | | | [phone] | | | +--------+ + + + [...]
--- OUTSIDE RECORDS SUMMARY | ~2019-01-12 | XMS | Encounter Summary ---
Demographics + + + | Address | [address] | | | [place] [address] | + + + | Home Phone | | + + + | Preferred Language | Unknown | + + + | Marital Status | | + + + | Anabaptist Affiliation | Unknown | + + + | Race | White | + + + | Ethnic Group | Not or | + + + Author + + + | Author | [facility] | + + + | Organization | [facility] | + + + | Address | Unknown | + + + | Phone | Unavailable | + + + Support + + +---------+ + | Name | Relationship | Address | Phone | + + +---------+ + | Freeman Mcdonnell | ECON | Unknown | | + + +---------+ + Care Team Providers + +------+ + | Care Hedis Review Nurse Name | Role | Phone | + +------+ + | Blake Weber PCP | Unavailable | + +------+ + Reason for Visit + + + | Reason | Comments | + + + | Lab Results | lab results from 10/25/06 | + + + | Radiographic imaging | Nuc Med WBS | | procedure | | + + + Encounter Details +--------+ + + + + | Date | Type | Department | Care Team | Description | +--------+ + + + + | 11/29/ | Telephone | Otolaryngology | Angeles Titus, | Lab Results (lab | | 2006 | | Endocrinology | MD [address] | results from | | | | Thyroid Services at | [facility] [address] | 10/25/06); | | | | PPV [address] | [place], [place] | Radiographic imaging | | | | [address] [facility] [address] | [address] | procedure (Nuc Med | | | | Mailcode: [id number] | [phone] | WBS) | | | | [facility] | | | | | | [place], [place] | | | | | | [address] | | | | | | [phone] | | | +--------+ + + + [...]
--- OUTSIDE RECORDS SUMMARY | ~2019-01-12 | XMS | Encounter Summary ---
Demographics + + + | Address | [address] | | | [place] [address] | + + + | Home Phone | | + + + | Preferred Language | Unknown | + + + | Marital Status | | + + + | Yarsani Affiliation | Unknown | + + + | Race | White | + + + | Ethnic Group | Not or | + + + Author + + + | Author | [facility] | + + + | Organization | [facility] | + + + | Address | Unknown | + + + | Phone | Unavailable | + + + Support + + +---------+ + | Name | Relationship | Address | Phone | + + +---------+ + | Freeman Mcdonnell | ECON | Unknown | | + + +---------+ + Care Team Providers + +------+ + | Care Bankman Name | Role | Phone | + [...] | | | Thyroid Services at | [facility] | | | | | [address] | [place], [place] | | | | | [facility] | [address] | | | | | Mailcode: [id number] | [phone] | | | | | [facility] | | | | | | [place], [place] | | | | | | [address] | | | | | | [phone] | | | +--------+ + + + [...]
--- OUTSIDE RECORDS SUMMARY | ~2019-01-12 | XMS | Encounter Summary ---
Demographics + + + | Address | [address] | | | [place] [address] | + + + | Home Phone | | + + + | Preferred Language | Unknown | + + + | Marital Status | | + + + | Spiritism Affiliation | Unknown | + + + | Race | White | + + + | Ethnic Group | Not or | + + + Author + + + | Author | [facility] | + + + | Organization | [facility] | + + + | Address | Unknown | + + + | Phone | Unavailable | + + + Support + + +---------+ + | Name | Relationship | Address | Phone | + + +---------+ + | Freeman Mcdonnell | ECON | Unknown | | + + +---------+ + Care Team Providers + +------+ + | Care Afloat Cryptologic Manager Name | Role | Phone | + +------+ + | Blake Weber | PCP | Unavailable | + +------+ + Reason for Visit + + + | Reason | Comments | + + + | Refill Request | | + + + Encounter Details +--------+--------+ + + + | Date | Type | Department | Care Team | Description | +--------+--------+ + + + | 12/03/ | Refill | Otolaryngology | Angeles Titus, | Refill Request | | 2006 | | Thyroid Services at | MD [address] | | | | | PPV [address] | [address] | | | | | [address] | [place], [place] | | | | | Mailcode: [id number] | [address] | | | | | [facility] | [phone] | | | | | [place], [place] | | | | | | [address] | | | | | | [phone] | | | +--------+--------+ + + + Social History + +-------+ [...]
--- OUTSIDE RECORDS SUMMARY | ~2019-01-12 | XMS | Encounter Summary ---
Demographics + + + | Address | [address] | | | [place] [address] | + + + | Home Phone | | + + + | Preferred Language | Unknown | + + + | Marital Status | | + + + | Worship Affiliation | Unknown | + + + | Race | White | + + + | Ethnic Group | Not or | + + + Author + + + | Author | [facility] | + + + | Organization | [facility] | + + + | Address | Unknown | + + + | Phone | Unavailable | + + + Support + + +---------+ + | Name | Relationship | Address | Phone | + + +---------+ + | Freeman Mcdonnell | ECON | Unknown | | + + +---------+ + Care Team Providers + +------+ + | Care Booster Pump Oiler Name | Role | Phone | + +------+ + PCP | Unavailable | + +------+ + Encounter Details +--------+ + + + + | Date | Type | Department | Care Team | Description | +--------+ + + + + | 03/12/ | Results | Medical | Terrance Marino MD | | | 2004 | Only | Dermatology [address] | | | | | [address] | [place], [place] | | | | | Mailcode: [id number] | [address] | | | | | Outpatient Clinic | [phone] | | | | | [facility], Room [address] | | | | | | [place], [place] | | | | | | [address] | | | | | | [phone] | | | +--------+ + + + [...] | + +--------+ + + + | DERMATOPATHOLOGY(WET | Routin | 03/12/2005 | | Results for this | | [facility]) | e | | | procedure are in the | | | | | | results section. | + +--------+ + + + documented in this encounter Results DERMATOPATHOLOGY(WET [facility]) (03/12/2005) + + + + + + | Component | Value | Ref Range | Performed | Pathologist | | | | | At | Signature | + + + + + + | DERMATOPATH | SOURCE OF SPECIMEN:A | | | | | OLOGY(WET | FIRST TISSUE LEVEL | | | | | MNT) | [place] [address] CLINICAL | | | | | | DESCRIPTION:Shave, rt. | | | | | | up back; irregular | | | | | | pigmented papule; nevus; | | | | | | R/O MM. GROSS | | | | | | DESCRIPTION:Rt. up back, | | | | | | shave, 0.7 x 0.5 cm, | | | | | | trisected. MICROSCOPIC | | | | | | DESCRIPTION:There is a | | | | | | small to moderately | | | | | | broad, symmetrical and | | | | | | well | | | | | | circumscribedmelanocytic | | | | | | neoplasm characterized | | | | | | by small nests and | | | | | | single melanocytesalong | | | | | | the basal layer of | | | | | | hyperplastic and | | | | | | hyperpigmented rete | | | | | | ridges. Themelanin | | | | | | pigment extends | | | | | | throughout the | | | | | | epidermis, including the | | | | | | | | | | | | stratumcorneum. There | | | | | | are round to oval nests | | | | | | of similar appearing | | | | | | melanocytes inthe | | | | | | thickened, fibrotic, and | | | | | | inflamed papillary | | | | | | dermis. | | | | | | DIAGNOSIS:MELANOCYTIC | | | | | | NEVUS, COMPOUND | | | | | | TYPE.NOTE: The | | | | | | nevus extends closely to | | | | | | the surgical margins. | | | | | | TRI/jyi03/15/05 Visiting | | | | | | [id number] | | | | | | [place], | | | | | | [place] [address] | | | | | | Diagnostician: Carmen | | | | | | amari Ovalle Jr., | | | | | | M.GalinaPathologistElectroni | | | | | | robson Signed 03/15/2005 | | | | + + + + + + + + | Specimen | + + | | + + + + + + + | Performing | Address | City/State/Zipcode | Phone Number | | Organization | | | | + + + + + | [facility] | [address], [address] | [place] [address] | | | DERMATOPATHOLOGY | [address] | | | + + + + + documented in this encounter Visit Diagnoses Not on filedocumented in this encounter"
--- OUTSIDE RECORDS SUMMARY | ~2019-01-12 | XMS | Encounter Summary ---
Demographics + + + | Address | [address] | | | [place] [address] | + + + | Home Phone | | + + + | Preferred Language | Unknown | + + + | Marital Status | | + + + | Anabaptism Affiliation | Unknown | + + + | Race | White | + + + | Ethnic Group | Not or | + + + Author + + + | Author | [facility] | + + + | Organization | [facility] | + + + | Address | Unknown | + + + | Phone | Unavailable | + + + Support + + +---------+ + | Name | Relationship | Address | Phone | + + +---------+ + | Freeman Mcdonnell | ECON | Unknown | | + + +---------+ + Care Team Providers + +------+ + | Care Digital Account Director Name | Role | Phone | + [...] Head and Neck | [address] [facility] | | | | | Surgery Services at | [facility] | | | | | [address] [facility] | [place] [address] | | | | | [address] | [phone] | | | | | Mailcode: [id number] | | | | | | [facility] | | | | | | [place], [place] | | | | | | [address] | | | | | | [phone] | | | +--------+ + + + [...]
--- OUTSIDE RECORDS SUMMARY | ~2019-01-12 | XMS | Encounter Summary ---
Demographics + + + | Address | [address] | | | [place] [address] | + + + | Home Phone | | + + + | Preferred Language | Unknown | + + + | Marital Status | | + + + | Lutheran Affiliation | Unknown | + + + [...] Team Providers + +------+ + | Care Foundry Process Engineer Name | Role | Phone | + +------+ + | Blake Weber | PCP | Unavailable | + +------+ + Reason for Visit + + + | Reason | Comments | + + + | Follow-up encounter | Salena was told she was to repeat bloodwork and a hard copy of the | | | order would be mailed. She has not received an order and is | | | unsure when and what labs are to be drawn. Please advise and an | | | order will be mailed tot he patient with all information. | + + + Encounter Details +--------+ + + + + | Date | Type | Department | Care Team | Description | +--------+ + + + + | 12/25/ | Telephone | Otolaryngology | Angeles Titus, | Follow-up encounter | | 2006 | | Endocrinology | MD [address] | (Salena was told she | | | | Thyroid Services at | [facility] [address] | was to repeat | | | | [address] | [place], [place] | bloodwork and a hard | | | | [facility] | [address] | copy of the order | | | | Mailcode: [id number] | [phone] | would be mailed. | | | | [facility] | | She has not received | | | | [place], [place] | | an order and is | | | | [address] | | unsure when and what | | | | [phone] | | labs are to be | | | | | | drawn. Please | | | | | | advise and an order | | | | | | will be mailed tot | | | | | | he patient with all | | | | | | information.) | +--------+ + + + + Social [...]
--- OUTSIDE RECORDS SUMMARY | ~2019-01-12 | XMS | Encounter Summary ---
Demographics + + + | Address | [address] | | | [place] [address] | + + + | Home Phone | | + + + | Preferred Language | Unknown | + + + | Marital Status | | + + + | Shinto Affiliation | Unknown | + + + | Race | White | + + + | Ethnic Group | Not or | + + + Author + + + | Author | [facility] | + + + | Organization | [facility] | + + + | Address | Unknown | + + + | Phone | Unavailable | + + + Support + + +---------+ + | Name | Relationship | Address | Phone | + + +---------+ + | Freeman Mcdonnell | ECON | Unknown | | + + +---------+ + Care Team Providers + +------+ + | Care Destination Specialist Name | Role | Phone | + +------+ + | Hemanth Hope | PCP | | + +------+ + Encounter Details +--------+ + + + + | Date | Type | Department | Care Team | Description | +--------+ + + + + | 10/25/ | Results | Otolaryngology | Tomás Garvey MD | | | 2006 | Only | Head and Neck | [address] | | | | | Surgery Services at | [address] | | | | | [address] [facility] | [place] [address] | | | | | [address] | [phone] | | | | | Mailcode: PV01 | | | | | | [facility] | | | | | | [place], [place] | | | | | | [address] | | | | | | [phone] | | | +--------+ + + + [...] | + +--------+ + + + | WHOLE BODY THYROID | Routin | 10/25/2006 | | Results for this | | SCAN [id number] | e | 1:26 PM | | procedure are in the | | | | PDT | | results section. | + +--------+ + + + | LAB OTHER | Routin | 10/25/2006 | | Results for this | | | e | 10:45 AM | | procedure are in the | | | | PDT | | results section. | + +--------+ + + + | TSH | Routin | 10/25/2006 | | Results for this | | | e | 10:45 AM | | procedure are in the | | | | PDT | | results section. | + +--------+ + + + documented in this encounter Results WHOLE BODY THYROID SCAN [id number] (10/25/2006 1:26 PM PDT) + + | Specimen | + + | | + + + + + | Narrative | Performed At | + + + | WHOLE BODY I-123 THYROID SCAN INDICATIONS: History of thyroid | [facility] | | cancer in 1987, with total thyroidectomy and radioactive iodine | DEPARTMENT OF | | treatment. Fluctuating TSH levels. Patient received 5.81 mCi of | RADIOLOGY | | Iodine-131 oral capsule. 48-hour delayed images show no evidence | | | of increased uptake in the neck or chest region. There is | | | physiologic activity in the colon. IMPRESSION: No evidence of | | | abnormal uptake. | | + + + + + | Procedure Note | + + | Interface, Radiology Results - 12/03/2014 2:03 PM PDT WHOLE BODY I-123 THYROID SCAN | | INDICATIONS: History of thyroid cancer in 1987, with total | | thyroidectomy and radioactive iodine treatment. Fluctuating TSH | | levels. | | Patient received 5.81 mCi of Iodine-131 oral capsule. 48-hour delayed | | images show no evidence of increased uptake in the neck or chest | | region. There is physiologic activity in the colon. | | IMPRESSION: No evidence of abnormal uptake. | + + + +---------+ + + | Performing | Address | City/State/Zipcode | Phone Number | | Organization | | | | + +---------+ + + | [facility] DEPARTMENT OF | | | | | RADIOLOGY | | | | + +---------+ + + TSH (10/25/2006 10:45 AM PDT) + + + + + + | Component | Value | Ref Range | Performed | Pathologist | | | | | At | Signature | + + + + + + | TSH | 14.51 (H) | 0.34 - 5.6 | [facility] | | | | | UIU/ML | [...] | + + + + + | [facility] | [address] | [place] [address] | | | [facility] | Streets | | | + + + + + LAB OTHER (10/25/2006 10:45 AM PDT) + + + + + + | Component | Value | Ref Range | Performed | Pathologist | | | | | At | Signature | + + + + + + | MISC REF | Comment: COMPREHENSIVE | | [facility] | | | TEST RESULT | THYROGLOBULIN:TEST: | | A MEDICAL | | | | | | CENTER | | | | RESULT: | | | | | | REFERE | | | | | | NCE | | | | | | ANTI-THYROGLOBULIN AN | | | | | | TIBODIES | | | | | | (Anti-Tg) | | | | | | 2.7 | | | | | | 0-100 IU/m | | | | | | THYROGLOBULIN | | | | | | (TG-SIERRA) 3.8 | | | | | | 0 | | | | | | -39 ng/mL For patients | | | | | [...] PERCENT | | | | | | THYROGLOBLULIN RECOVE | | | | | | RY | | | | | | | | | | | | 103 | | | | | | 85-115% | | | | + + + + + + + + | Specimen | + + | | + + + + + + + | Performing | Address | City/State/Zipcode | Phone Number | | Organization | | | | + + + + + | [facility] | | | | | LABORATORY | | | | + + + + + | [facility] | | [place] [address] | | | [facility] | [facility] | | | + + + + + documented in this encounter Visit Diagnoses Not on filedocumented in this encounter"
--- OUTSIDE RECORDS SUMMARY | ~2019-01-12 | XMS | Encounter Summary ---
Demographics + + + | Address | [address] | | | [place] [address] | + + + | Home Phone | | + + + | Preferred Language | Unknown | + + + | Marital Status | | + + + | Druze Affiliation | Unknown | + + + | Race | White | + + + | Ethnic Group | Not or | + + + Author + + + | Author | [facility] | + + + | Organization | [facility] | + + + | Address | Unknown | + + + | Phone | Unavailable | + + + Support + + +---------+ + | Name | Relationship | Address | Phone | + + +---------+ + | Freeman Mcdonnell | ECON | Unknown | | + + +---------+ + Care Team Providers + +------+ + | Care Paper And Pulp Mill Worker Name | Role | Phone | + +------+ + | No Pcp Per Patient | PCP | Unavailable | + +------+ + Encounter Details +--------+ + + + + | Date | Type | Department | Care Team | Description | +--------+ + + + + | 04/10/ | Abstract | [facility] | Erick Busby, | | | 2013 | | [place] at [facility] | | | | | | [address] | | | | | | [place] | | | | | | [address] | | | | | | [phone] | | | +--------+ + + + [...]
--- OUTSIDE RECORDS SUMMARY | ~2019-01-12 | XMS | Encounter Summary ---
Demographics + + + | Address | [address] | | | [place] [address] | + + + | Home Phone | | + + + | Preferred Language | Unknown | + + + | Marital Status | | + + + | Hinduism Affiliation | Unknown | + + + | Race | White | + + + | Ethnic Group | Not or | + + + Author + + + | Author | [facility] | + + + | Organization | [facility] | + + + | Address | Unknown | + + + | Phone | Unavailable | + + + Support + + +---------+ + | Name | Relationship | Address | Phone | + + +---------+ + | Freeman Mcdonnell | ECON | Unknown | | + + +---------+ + Care Team Providers + +------+ + | Care Director Industrial Name | Role | Phone | + [...] | | Required | Metabolism | | [place] | [address] | | | | | | [facility] | [facility] | | | | | | MEDICAL | [address] [place], | | | | | | [facility] | [place] | | | | | | [address] | [address] | | | | | | [place], [place] | Phone: | | | | | | [address] | [phone] | | | | | | | Fax: | | | | | | | [phone] | +--------+ + + + + + [...] | | | Thyroid Services at | [facility] [address] | (Primary Dx) | | | | [address] | [place], [place] | | | | | [facility] [address] | [address] | | | | | Mailcode: [id number] | [phone] | | | | | [facility] | | | | | | [place], [place] | | | | | | [address] | | | | | | [phone] | | | +--------+---------+ + + + [...] 3.18 03/19 6.71 06/17 0.57 A/P Ms. Mcdonnell is a 51 yo white [...] indio as detailed there. Angeles Titus M.D. Electric Spot Welder, Endocrinology documented in this encoun ter Plan [...]
--- OUTSIDE RECORDS SUMMARY | ~2019-01-12 | XMS | Encounter Summary ---
Demographics + + + | Address | [address] | | | [place] [address] | + + + | Home Phone [...] + + | Author | [facility] | + + + | Organization | [facility] | + + + | Address | Unknown | + + + | Phone | Unavailable | + + + Support + + +---------+ + | Name | Relationship | Address | Phone | + + +---------+ + | Freeman Newberry | ECON | Unknown | | + + +---------+ + Care Team Providers + +------+ + | Care Farm Adviser Name | Role | Phone | + [...] [place] | | | | | [address] | [address] | | | | | | [phone] | | | | | | | [...] + | Transcriptions | + + | Freeman Kauffman MD - 03/28/2011 5:50 AM [facility] | | ECHOCARDIOGRAM [id number] [place] [address] | | CONISALENA SDATE OF EXAM: March 27, 2011ORDERING PROVIDER: | | KACI GriderIAGNOSIS: Fluttering in chest.HT: WT: BSA: 2.0 | | m2.PROPERTY INSURANCE CLAIMS EXAMINER: Natalia Carroll DIMENSIONS: | | NORMAL VALUES:Left ventricle End Diastole 4.2 cm. 3.5 - 5.6 cmEnd | | Systole 2.3 cm.% Fractional shortening 45%. Greater than | | 25%Left atrium 2.5 cm. 1.9 - 4.0 cm1.2 - 2.2 | | cm/np5Sqlafe root 3.2 cm. 2.0 - 3.7 cm1.2 - 2.2 | | cm/fh2IUBB VENTRICULAR WALL THICKNESS/FUNCTION:Posterior wall Diastole | | 0.6 - 1.1 cmInterventricular septum Diastole 0.6 - 1.1 | | cmE Point to septal separation (EPSS) 0.3 cm Less than .6 cmVALVULAR | | PARAMETERS:Excursion Greater than 2.0 cmAortic valve Cusp | | separation 2.2 cm. 1.5 - 2.6 cmCOMPARISON ECHOCARDIOGRAM: None.CART/READER: [employer] | | Aplio K[employer].INTERPRETATION:1. The study is [...] | tricuspid regurgitation, SALENA Finch | | [id number] | | | | | | | [...] estimates.6. No | | previous echocardiogram for comparison.MARLO/MedCiprianoDD: 03/27/2011 22:48:08DT: 03/28/2011 | | 05:41:39Job #: [id number]: Priscilla Whiting, | | IAIN | | | | Electronically Signed | | 03/28/110 | | | | | | | | | | Freeman Juárez | | DalyLU JANE | | [id number] | | | | | | | [...] |MARLO/Radha | | | | | | /[id number] | | | | | |cc: IAIN Grider | | Electronically Signed | |03/28/110 | | | | Freeman Kauffman MD | | | | | | | | | | | | | | | | | | | | | | | | | | | | | | | | | | | | | |NEWBERRYSALENA S | |[id number] | |[id number] | | | | : 59 | + + documented in this encounter Visit Diagnoses Not on filedocumented in this encounter"
--- OUTSIDE RECORDS SUMMARY | ~2019-01-12 | XMS | Encounter Summary ---
Demographics + + + | Address | [address] | | | [place] [address] | + + + | Home Phone | | + + + | Preferred Language | Unknown | + + + | Marital Status | | + + + | Anabaptism Affiliation | Unknown | + + + | Race | White | + + + | Ethnic Group | Not or | + + + Author + + + | Author | [facility] | + + + | Organization | [facility] | + + + | Address | Unknown | + + + | Phone | Unavailable | + + + Support + + +---------+ + | Name | Relationship | Address | Phone | + + +---------+ + | Freeman Mcdonnell | ECON | Unknown | | + + +---------+ + Care Team Providers + +------+ + | Care Can Handler Name | Role | Phone | + +------+ + | Hemanth Hope | PCP | | + +------+ + Reason for Visit + + + | Reason | Comments | + + + | Comprehensive eye | | | examination | | + + + Encounter Details +--------+---------+ + + + | Date | Type | Department | Care Team | Description | +--------+---------+ + + + | 06/16/ | Office | [facility] | Erick Donovan, | Vitreous | | 2014 | Visit | [place] [facility] | MD | degeneration, left | | | | [place] [address] | | [379.21] (Primary | | | | [place], [place] | | Dx); Dry eyes, left | | | | [address] | | [375.15] | | | | [phone] | | | +--------+---------+ + + + [...] + documented as of this encounter Progress Neema Morris - 06/16/2014 2:41 PM PSTFormatting of this note might be different from t teresa original. [facility] [place] Progress Note 06/16/2014 CC: Comprehensive eye examination HPI: Salena Mcdonnell is a 59 y.o. female Patient reports large floater OS remains unchanged. Bothers patient while driving and watch ing TV. "Sometimes that eye feels different, left eye". Admits maybe a little bonnie feeling . Vision seems unchanged. Content with SVRs. Floater bothers her a little POH: No specialty comments on file. History Smoking status Never Smoker Smokeless tobacco Not on file Past Medical History Diagnosis Date Asthma FH: Family History Problem Relation Additional Family History Brother cystic fibrosis Additional Family History Father multiple myeloma/thyroid cancer Cancer Father Cataract Father Cataract Mother Heart Disease Mother Diabetes Neg Hx Glaucoma Neg Hx Macular degeneration Neg Hx Allergies Allergen Reactions Demerol [Meperidine (Pf)] Current Outpatient Prescriptions (Other) Medication Sig ALBUTEROL IN prn baclofen Take 10 mg by mouth three times daily. levothyroxine Take 150 mcg by mouth before breakfast. pantoprazole Take 20 mg by mouth once daily. EXAM: See Ophthalmology Module for Examination Diagnostic Studies: No diagnostic studies ordered this encounter. IMPRESSION: 59 y.o. female with Ophthalmologic problems: PVD OS No retinal complication Vitreous syneresis OD. Call prn new floaters. Mild dry eye OS PLAN: Sign and symptoms of retinal tear explained to patient in detail. Return in about 2 years (around 06/16/2016) for Complete Exam. I, NEEMA JOHNSON, am functioning as a scribe for Erick Donovan MD. Provider Attestation: I have reviewed and verified the above scribed note of my visit with this patient as record ed by Neema Johnson. 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
--- OUTSIDE RECORDS SUMMARY | ~2019-01-12 | XMS | Encounter Summary ---
Demographics + + + | Address | [address] | | | [place] [address] | + + + | Home Phone | | + + + | Preferred Language | Unknown | + + + | Marital Status | | + + + | Restoration Affiliation | Unknown | + + + | Race | White | + + + | Ethnic Group | Not or | + + + Author + + + | Author | [facility] | + + + | Organization | [facility] | + + + | Address | Unknown | + + + | Phone | Unavailable | + + + Support + + +---------+ + | Name | Relationship | Address | Phone | + + +---------+ + | Freeman Mcdonnell | ECON | Unknown | | + + +---------+ + Care Team Providers + +------+ + | Care School Patrol Name | Role | Phone | + [...] | | | [address] | [place], [place] | | | | | Mailcode: PV01 | [address] | | | | | [facility] | [phone] | | | | | [place], [place] | | | | | | [address] | | | | | | [phone] | | | +--------+ + + + [...]
--- OUTSIDE RECORDS SUMMARY | ~2019-01-12 | XMS | Encounter Summary ---
Demographics + + + | Address | [address] | | | [place] [address] | + + + | Home Phone | | + + + | Preferred Language | Unknown | + + + | Marital Status | | + + + | Jewish Affiliation | Unknown | + + + [...] Team Providers + +------+ + | Care White Kid Buffer Name | Role | Phone | + +------+ + PCP | Unavailable | + +------+ + Encounter Details +--------+ + + + + | Date | Type | Department | Care Team | Description | +--------+ + + + + | 11/24/ | Results | | Angeles Romero MD | | | 2002 | Only | | [address] | | | | | | [place], | | | | | | [place] [address] | | | | | | [phone] | | | | | | | [...] | + +--------+ + + + | THYROGLOBULIN LEVEL | Routin | 11/24/2002 | | Results for this | | AND ANTIBODY, SERUM | e | 11:42 AM | | procedure are in the | | | | PDT | | results section. | + +--------+ + + + | FREE T4 | Routin | 11/24/2002 | | Results for this | | | e | 11:42 AM | | procedure are in the | | | | PDT | | results section. | + +--------+ + + + | TSH | Routin | 11/24/2002 | | Results for this | | | e | 11:42 AM | | procedure are in the | | | | PDT | | results section. | + +--------+ + + + documented in this encounter Results THYROGLOBULIN, SERUM (11/24/2002 11:42 AM PDT) + + + + + + | Component | Value | Ref Range | Performed | Pathologist | | | | | At | Signature | + + + + + + | THYROGLOBUL | < 0.3Comment: REFERENCE | <2.1 IU/mL | | | | IN ANTIBODY | INTERVAL: Thyroglobulin | | | | | | Ab 0.0 - 2.0 | | | | | | IU/mL Test | | | | | | performed by [facility] | | | | | | Laboratories. | | | | + + + + + + | % RECOVERY | NOT APPLComment: | % | | | | | Recoveries are not | | | | | | performed on antibody | | | | | | negative samples. | | | | + + + + + + | THYROGLOBUL | < 0.5 (L)Comment: TEST | 0.5 - 43.0 | | | | IN SERUM | INFORMATION: | ng/mL | | | | | ThyroglobulinThyroglobul | | | | | | in antibodies (anti-TG) | | | | | | are known to | | | | | | interferewith the | | | | | | measurement of | | | | | | thyroglobulin. An | | | | | | assessment | | | | | | ofauto-antibody | | | | | | interference can be made | | | | | | by recovery studies.A % | | | | | | recovery of less than | | | | | | 80% in any sample | | | | | | suggestsinterference in | | | | | | the assay and the | | | | | | thyroglobulin | | | | | | valueshould be | | | | | | interpreted with | | | | | | caution. | | | | + + + + + + + + | Specimen | + + | | + + + + + + + | Performing | Address | City/State/Zipcode | Phone Number | | Organization | | | | + + + + + | [facility] | [address] | [place], [place] | | | [facility] | | [address] | | + + + + + FREE T4, SERUM (11/24/2002 11:42 AM PDT) + + + + + + | Component | Value | Ref Range | Performed | Pathologist | | | | | At | Signature | + + + + + + | FREE T4, | 1.7Comment: Test | 0.7 - 1.8 ng/dL | | | | SERUM | performed by [facility] | | | | | | [facility] | | | | | | Laboratories. | | | | + + + + + + + + | Specimen | + + | | + + + + + + + | Performing | Address | City/State/Zipcode | Phone Number | | Organization | | | | + + + + + | [facility] | [address] | [place] [address] | | | LABORATORY | | | | + + + + + TSH-THYROID STIM HORMONE (11/24/2002 11:42 AM PDT) + + + + + + | Component | Value | Ref Range | Performed | Pathologist | | | | | At | Signature | + + + + + + | TSH | 0.03 (L)Comment: Test | 0.28 - 5.00 | | | | | performed by [facility] | [facility] | | | | | [facility] | | | | | | Laboratories. | | | | + + + + + + + + | Specimen | + + | | + + + + + + + | Performing | Address | City/State/Zipcode | Phone Number | | Organization | | | | + + + + + | [facility] | [address] | [place] [address] | | | LABORATORY | | | | + + + + + documented in this encounter Visit Diagnoses Not on filedocumented in this encounter"
--- OUTSIDE RECORDS SUMMARY | ~2019-01-12 | XMS | Encounter Summary ---
Demographics + + + | Address | [address] | | | [place] [address] | + + + | Home Phone | | + + + | Preferred Language | Unknown | + + + | Marital Status | | + + + | Zoroastrianism Affiliation | Unknown | + + + | Race | White | + + + | Ethnic Group | Not or | + + + Author + + + | Author | [facility] | + + + | Organization | [facility] | + + + | Address | Unknown | + + + | Phone | Unavailable | + + + Support + + +---------+ + | Name | Relationship | Address | Phone | + + +---------+ + | Freeman Mcdonnell | ECON | Unknown | | + + +---------+ + Care Team Providers + +------+ + | Care Systems Software Engineer Name | Role | Phone | [...] | | | Thyroid Services at | [address] | was to repeat | | | | [address] | [place], [place] | bloodwork and a hard | | | | [facility] | [address] | copy of the order | | | | Mailcode: [id number] | [phone] | would be mailed. | | | | [facility] | | She has not received | | | | [place], [place] | | an order and is | | | | [address] | | unsure when and what | | | | [phone] | | labs are to be | [...]
--- OUTSIDE RECORDS SUMMARY | ~2019-01-12 | XMS | Encounter Summary ---
Demographics + + + | Address | [address] | | | [place] [address] | + + + | Home Phone | | + + + | Preferred Language | Unknown | + + + | Marital Status | | + + + | Church Affiliation | Unknown | + + + | Race | White | + + + | Ethnic Group | Not or | + + + Author + + + | Author | [facility] | + + + | Organization | [facility] | + + + | Address | Unknown | + + + | Phone | Unavailable | + + + Support + + +---------+ + | Name | Relationship | Address | Phone | + + +---------+ + | Freeman Mcdonnell | ECON | Unknown | | + + +---------+ + Care Team Providers + +------+ + | Care Financial Sales Advisor Name | Role | Phone | + +------+ + | Hemanth Hope | PCP | | + +------+ + Encounter Details +--------+ + + + + | Date | Type | Department | Care Team | Description | +--------+ + + + + | 03/06/ | Results | [facility] | Bruno Fierro | | | 2004 | Only | Department | [facility] | | | | | | [facility] | | | | | | [address] [place] [address] | | | | | | [place] [address] | | | | | | [phone] | | | | | | | [...] | + +--------+ + + + | C-SPINE 4V OR 5 VIEW | Routin | 03/06/2005 | | Results for this | | [id number] | e | 12:43 PM | | procedure are in the | | | | PST | | results section. | + +--------+ + + + documented in this encounter Results C-SPINE 4V OR 5 VIEW [id number] (03/06/2005 12:43 PM PST) + + | Specimen | + + | | + + + + + | Narrative | Performed At | + + + | CERVICAL SPINE, SIX VIEWS INDICATION: Neck pain. AP film of the | [facility] | | upper thoracic and cervical spine shows presence of | DEPARTMENT OF | | dextroscoliosis. There are surgical clips in the neck bilaterally. | RADIOLOGY | | The cervical vertebral body heights and disk spaces are maintained. | | | There is no evidence of marginal spurring, facet degenerative changes | | | or foraminal stenosis. No signs of fracture or destructive bone | | | changes. Normal atlantoaxial relationship. Retropharyngeal soft | | | tissues are not thickened. IMPRESSION: Dextroscoliosis of the | | | spine. | | + + + + + | Procedure Note | + + | Interface, Radiology Results - 12/03/2014 3:15 PM PDT CERVICAL SPINE, SIX VIEWS | | INDICATION: Neck pain. | | AP film of the upper thoracic and cervical spine shows presence of | | dextroscoliosis. There are surgical clips in the neck bilaterally. | | The cervical vertebral body heights and disk spaces are maintained. | | There is no evidence of marginal spurring, facet degenerative changes | | or foraminal stenosis. No signs of fracture or destructive bone | | changes. Normal atlantoaxial relationship. Retropharyngeal soft | | tissues are not thickened. | | IMPRESSION: Dextroscoliosis of the spine. | + + + +---------+ + + [...]
--- OUTSIDE RECORDS SUMMARY | ~2019-01-12 | XMS | Encounter Summary ---
Demographics + + + | Address | [address] | | | [place] [address] | + + + | Home Phone | | + + + | Preferred Language | Unknown | + + + | Marital Status | | + + + | Bahai Affiliation | Unknown | + + + [...] Team Providers + +------+ + | Care Supervisor Core Drilling Name | Role | Phone | + [...] | | | | [address] | [place] [address] | | | | | [address] | [phone] | | | | | Mailcode: PV01 | | | | | | [facility] | | | | | | [place], [place] | | | | | | [address] | | | | | | [phone] | | | +--------+ + + + [...] 0.25 (L) | 0.34 - 5.6 | [facility] | | | | | UIU/ML | [...] | + + + + + | [facility] | [address] | [place] [address] | | | MEDICAL CENTER | Streets [...] | | | 5%@ TEST RUN BY [facility] | | | | | | LABORATORY [...] | + + + + + | [facility] | And | [place] [address] | | | [facility] | [facility] | | | + + + + + documented in this encounter Visit Diagnoses Not on filedocumented in this encounter"
--- OUTSIDE RECORDS SUMMARY | ~2019-01-12 | XMS | Encounter Summary ---
Demographics + + + | Address | [address] | | | [place] [address] | + + + | Home Phone | | + + + | Preferred Language | Unknown | + + + | Marital Status | | + + + | Mandaeism Affiliation | Unknown | + + + [...] Team Providers + +------+ + | Care Project Asst Name | Role | Phone | + [...] | | | Thyroid Services at | [address] | | | | | [address] | [place], [place] | | | | | [address] | [address] | | | | | Mailcode: [id number] | [phone] | | | | | [facility] | | | | | | [place], [place] | | | | | | [address] | | | | | | [phone] | | | +--------+ + + + [...]
--- OUTSIDE RECORDS SUMMARY | ~2019-01-12 | XMS | Encounter Summary ---
Demographics + + + | Address | [address] | | | [place] [address] | + + + | Home Phone | | + + + | Preferred Language | Unknown | + + + | Marital Status | | + + + | Christianity Affiliation | Unknown | + + + | Race | White | + + + | Ethnic Group | Not or | + + + Author + + + | Author | [facility] | + + + | Organization | [facility] | + + + | Address | Unknown | + + + | Phone | Unavailable | + + + Support + + +---------+ + | Name | Relationship | Address | Phone | + + +---------+ + | Freeman Mcdonnell | ECON | Unknown | | + + +---------+ + Care Team Providers + +------+ + | Care Paper Stacker Name | Role | Phone | + [...] | | | Thyroid Services at | [facility] [address] | 10/25/06); | | | | [address] | [place], [place] | Radiographic imaging | | | | [facility] [address] | [address] | procedure (Nuc Med | | | | Mailcode: [id number] | [phone] | WBS) | | | | [facility] | | | | | | [place], [place] | | | | | | [address] | | | | | | [phone] | | | +--------+ + + + [...]
--- OUTSIDE RECORDS SUMMARY | ~2019-01-12 | XMS | Clinical Summary ---
Demographics + + + | Address | [address] [place] [address] | | | [place] [address] | + + + | Home Phone | | + + + | Preferred Language | Unknown | + + + | Marital Status | | + + + | Congregational Affiliation | 1041 | + + + | Race | Unknown | + + + | Ethnic Group | Unknown | + + + Author + + + | Author | [facility] | | | and [place] | + + + | Organization | [facility] | | | and [place] | + + + | Address | Unknown | + + + | Phone | Unavailable | + + + Support + + +---------+ + | Name | Relationship | Address | Phone | + + +---------+ + | MARIA C NEWBERRY ECON | Unknown | | + + +---------+ + Care Team Providers + +------+ + | Care Range Management Specialist Name | Role | Phone | + +------+ + PCP | Unavailable | + +------+ + Allergies Not on File Medications Not on file Active Problems Not on file Social History + +-------+ +--------+------+ | Tobacco [...] | + + Last Filed Vital Signs Not on file Plan of Treatment + + + + + | Health Maintenance | Due Date | Last Done | Comments | + + + + + | Vaccine: | | | | | Dtap/Tdap/Td (1 - | 6 | | | | Tdap) | | | | + + + + + | Cervical Cancer | | | | | Screening (Pap) | 7 | | | + + + + + | Vaccine: Zoster (1 | | | | | of 2) | 7 | | | + + + + + | Vaccine: Influenza | | | | | (#1) | 9 | | | + + + + + Results Not on filefrom Last 3 Months"
--- OUTSIDE RECORDS SUMMARY | ~2019-01-12 | XMS | Encounter Summary ---
Demographics + + + | Address | [address] | | | [place] [address] | + + + | Home Phone [...] + + + | Author | [facility] | + + + | Organization | [facility] | + + + | Address | Unknown | + + + | Phone | Unavailable | + + + Support + + +---------+ + | Name | Relationship | Address | Phone | + + +---------+ + | Freeman Mcdonnell | ECON | Unknown | | + + +---------+ + Care Team Providers + +------+ + | Care President [employer] Name | Role | Phone | + [...] | | | | [address] | [place] [address] | | | | | [address] | [phone] | | | | | Mailcode: [id number] | | | | | | [facility] | | | | | | [place], [place] | | | | | | [address] | | | | | | [phone] | | | +--------+ + + + [...] | Results for this | | SCAN 41687 | e | 1:26 PM | | [...] this encounter Results WHOLE BODY THYROID SCAN 18110 (10/25/2006 1:26 PM PDT) + + | [...] | + + + + + | [facility] | [address] | [place] [address] | | | [facility] | Streets | | | + + + + + LAB OTHER (10/25/2006 10:45 AM PDT) + + + + + + | Component | Value | Ref Range | Performed | Pathologist | | | | | At | Signature | + + + + + + | MISC REF | Comment: COMPREHENSIVE | | [facility] | | | TEST RESULT | THYROGLOBULIN:TEST: [...] + + + + + | [facility] | | | | | LABORATORY | | | | + + + + + | [facility] | | [place] [address] | | | [facility] | [facility] | | | + + + + + documented in this encounter Visit Diagnoses Not on filedocumented in this encounter"
--- OUTSIDE RECORDS SUMMARY | ~2019-01-12 | XMS | Encounter Summary ---
Demographics + + + | Address | [address] | | | [place] [address] | + + + | Home Phone [...] Team Providers + +------+ + | Care Auxiliary Engineer Name | Role | Phone | + +------+ + | Blake Weber | PCP | Unavailable | + +------+ + Encounter Details +--------+ + + + + | Date | Type | Department | Care Team | Description | +--------+ + + + + | 11/15/ | Documentati | Otolaryngology | Tomás Garvey MD | | | 2006 | on | Head and Neck | [address] [facility] | | | | | Surgery Services at | [facility] | | | | | [address] [facility] | [place] [address] | | | | | [address] | [phone] | | | | | Mailcode: [id number] | | | | | | [facility] | | | | | | [place], [place] | | | | | | [address] | | | | | | [phone] | | | +--------+ + + + [...]
--- OUTSIDE RECORDS SUMMARY | ~2019-01-12 | XMS | Encounter Summary ---
Demographics + + + | Address | [address] | | | [place] [address] | + + + | Home Phone | | + + + | Preferred Language | Unknown | + + + | Marital Status | | + + + | Baptism Affiliation | Unknown | + + + | Race | White | + + + | Ethnic Group | Not or | + + + Author + + + | Author | [facility] | + + + | Organization | [facility] | + + + | Address | Unknown | + + + | Phone | Unavailable | + + + Support + + +---------+ + | Name | Relationship | Address | Phone | + + +---------+ + | Freeman Mcdonnell | ECON | Unknown | | + + +---------+ + Care Team Providers + +------+ + | Care Pediatric Psychologist Name | Role | Phone | + [...] | | | [address] | [place], [place] | | | | | Mailcode: [id number] | [address] | | | | | [facility] | [phone] | | | | | [place], [place] | | | | | | [address] | | | | | | [phone] | | | +--------+--------+ + + + [...]
--- OUTSIDE RECORDS SUMMARY | ~2019-01-12 | XMS | Encounter Summary ---
Demographics + + + | Address | [address] | | | [place] [address] | + + + | Home Phone | | + + + | Preferred Language | Unknown | + + + | Marital Status | | + + + | Hoahaoism Affiliation | Unknown | + + + [...] Team Providers + +------+ + | Care Registered Midwife Name | Role | Phone | + [...] | | | Thyroid Services at | [address] | | | | | [address] | [place], [place] | | | | | [facility] | [address] | | | | | Mailcode: [id number] | [phone] | | | | | [facility] | | | | | | [place], [place] | | | | | | [address] | | | | | | [phone] | | | +--------+ + + + [...] in this encounter Results TSH-THYROID STIM HORMONE (10/25/2006) + + + + + + | Component | Value | Ref Range | Performed | Pathologist | | | | | At | Signature | + + + + + + | TSH | 14.51 (A) | 0.34 - 5.6 | OUTSIDE [...]
--- OUTSIDE RECORDS SUMMARY | ~2019-01-12 | XMS | Encounter Summary ---
Demographics + + + | Address | [address] | | | [place] [address] | + + + | Home Phone [...] Team Providers + +------+ + | Care Cnc Milling Machine Operator Name | Role | Phone | [...] 2004 | Only | Department | [facility] | | | | | | [facility] | | | | | | [address] [place] [address] | | | | | | [place] [address] | | | | | | [phone] | | | | | | | [...] | | Results for this | | [address] | e | 12:43 PM | | procedure are in the | | | | PST | | results section. | + +--------+ + + + documented in this encounter Results C-SPINE 4V OR 5 VIEW 33757 (03/06/2005 12:43 PM PST) + + | [...]
--- OUTSIDE RECORDS SUMMARY | ~2019-01-12 | XMS | Clinical Summary ---
Demographics + + + | Address | [address] [place] [address] | | | [place] [address] | + + + | Home Phone | | + + + | Preferred Language | Unknown | + + + | Marital Status | | + + + | Congregation Affiliation | 1041 | + + + | Race | Unknown | + + + | Ethnic Group | Unknown | + + + Author + + + | Author | [facility] | | | and [place] | + + + | Organization | [facility] | | | and [...] Team Providers + +------+ + | Care Air Conditioning Insulation Installer Name | Role | Phone | + [...]
--- OUTSIDE RECORDS SUMMARY | ~2019-01-12 | XMS | Encounter Summary ---
Demographics + + + | Address | [address] | | | [place] [address] | + + + | Home Phone | | + + + | Preferred Language | Unknown | + + + | Marital Status | | + + + | Voodoo Affiliation | Unknown | + + + [...] Team Providers + +------+ + | Care Plant Superintendent Name | Role | Phone | [...] Description | +--------+--------+ + + + | 04/10/ | Refill | Otolaryngology | Angeles Titus, | Refill Request | | 2006 | | Thyroid Services at | MD [address] | | | | | [address] | [address] | | | | | [address] | [place], [place] | | | | | Mailcode: [id number] | [address] | | | | | [facility] | [phone] | | | | | [place], [place] | | | | | | [address] | | | | | | [phone] | | | +--------+--------+ + + + [...]
--- OUTSIDE RECORDS SUMMARY | ~2019-01-12 | XMS | Encounter Summary ---
Demographics + + + | Address | [address] | | | [place] [address] | + + + | Home Phone [...] Team Providers + +------+ + | Care Wet End Tester Name | Role | Phone | [...] | | | | | Yahaira Lanza [place], | | | | | | [place] [address] | | | | | | [phone] | | | | | | | [...] | | | | | performed by [facility] | | | | | [...] [facility] | [address] | [place], [place] | | | [facility] | | [address] | | + + + + + [...] Gomez | | | | | | [facility] | | | | | | Laboratories. | | | | + + + + + + + + | Specimen | + + | | + + + + + + + | Performing | Address | City/State/Zipcode | Phone Number | | Organization | | | | + + + + + | [facility] | [address] | [place] [address] | | | LABORATORY | | | [...] | + + + + + | [facility] | [address] | [place] [address] | | | LABORATORY | | | | + + + + + documented in this encounter Visit Diagnoses Not on filedocumented in this encounter"
--- OUTSIDE RECORDS SUMMARY | ~2019-01-12 | XMS | Encounter Summary ---
Demographics + + + | Address | [address] | | | [place] [address] | + + + | Home Phone | | + + + | Preferred Language | Unknown | + + + | Marital Status | | + + + | Pentecostalism Affiliation | Unknown | + + + [...] Team Providers + +------+ + | Care Final Rail Cutter Name | Role | Phone | + [...] Vitreous | | 2014 | Visit | [facility] | MD | degeneration, left | | | | [place] [address] | | [379.21] (Primary | | | | [place], [place] | | Dx); Dry eyes, left | | | | [address] | | [375.15] | | | | [phone] | | | +--------+---------+ + + + [...] different from t teresa original. [facility] [place] Progress Note 06/16/2014 CC: Comprehensive eye examination [...] ed by Neema Johnson. 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
--- OUTSIDE RECORDS SUMMARY | ~2019-01-12 | XMS | Clinical Summary ---
Demographics + + + | Address | [address] | | | [place] [address] | + + + | Home Phone [...] Providers + +------+ + | Care Supervisor Travel Trailer Name | Role | Phone | + +------+ + | Hemanth Hope | PCP | | + +------+ + Source Comments SANDRITA is fully live on both [facility] Ambulatory and [facility] InPatient.[facility] Allergies + + + + + [...] | x | 012-Pr | 8 | [address] | | | | | | esent | | [place], | | | | | | | | [place] | | | | | | | | [address] | | + +--------+ +--------+ + +------+ + +--------+ +--------+ + + | Guarantor Name | Accoun | Relation to | Date | Phone | Billing Address | | | t Type | Patient | of | | | | | | | | | | + +--------+ +--------+ + + | [place] Mcdonnell | Person | Self | [birth year] | [address] | | | al/Fam | | 1954 | [phone] | [place] [address] | | | bob | | | 6 (Home) | | + +--------+ +--------+ + +"
--- OUTSIDE RECORDS SUMMARY | ~2019-01-12 | XMS | Encounter Summary ---
Demographics + + + | Address | [address] | | | [place] [address] | + + + | Home Phone | | + + + | Preferred Language | Unknown | + + + | Marital Status | | + + + | Quaker Affiliation | Unknown | + + + [...] | + + +---------+ + | Freeman Mcdonenll | ECON | Unknown | | + + +---------+ + Care Team Providers + +------+ + | Care Commercial Shrimping Captain Name | Role | Phone | + [...] | | | Thyroid Services at | [address] | | | | | [address] | [place], [place] | | | | | [facility] [address] | [address] | | | | | Mailcode: [id number] | [phone] | | | | | [facility] | | | | | | [place], [place] | | | | | | [address] | | | | | | [phone] | | | +--------+ + + + [...]
--- OUTSIDE RECORDS SUMMARY | ~2019-01-12 | XMS | Encounter Summary ---
Demographics + + + | Address | [address] | | | [place] [address] | + + + | Home Phone | | + + + | Preferred Language | Unknown | + + + | Marital Status | | + + + | Judaism Affiliation | Unknown | + + + | Race | White | + + + | Ethnic Group | Not or | + + + Author + + + | Author | [facility] | + + + | Organization | [facility] | + + + | Address | Unknown | + + + | Phone | Unavailable | + + + Support + + +---------+ + | Name | Relationship | Address | Phone | + + +---------+ + | Freeman Mcdonnell | ECON | Unknown | | + + +---------+ + Care Team Providers + +------+ + | Care Body Design Checker Name | Role | Phone | + +------+ + | Hemanth Hope | PCP | | + +------+ + Encounter Details +--------+ + + + + | Date | Type | Department | Care Team | Description | +--------+ + + + + | 11/08/ | Inside | [facility] | Hemanth Hope, | | | 2018 | Referral | [facility] [address] | [address] | | | | Order | [address] | [facility], [place] | | | | | [place] | [address] | | | | | [address] | | | +--------+ + + + [...]
--- OUTSIDE RECORDS SUMMARY | ~2019-01-12 | XMS | Encounter Summary ---
Demographics + + + | Address | [address] | | | [place] [address] | + + + | Home Phone | | + + + | Preferred Language | Unknown | + + + | Marital Status | | + + + | Amish Affiliation | Unknown | + + + | Race | White | + + + | Ethnic Group | Not or | + + + Author + + + | Author | [facility] | + + + | Organization | [facility] | + + + | Address | Unknown | + + + | Phone | Unavailable | + + + Support + + +---------+ + | Name | Relationship | Address | Phone | + + +---------+ + | Freeman Mcdonnell | ECON | Unknown | | + + +---------+ + Care Team Providers + +------+ + | Care Electro Mechanical Technologist Name | Role | Phone | + [...] | | | [address] | [place], [place] | | | | | Mailcode: [id number] | [address] | | | | | [facility] | [phone] | | | | | [place], [place] | | | | | | [address] | | | | | | [phone] | | | +--------+--------+ + + + [...]
--- OUTSIDE RECORDS SUMMARY | ~2019-01-12 | XMS | Encounter Summary ---
Demographics + + + | Address | [address] | | | [place] [address] | + + + | Home Phone | | + + + | Preferred Language | Unknown | + + + | Marital Status | | + + + | Alevism Affiliation | Unknown | + + + | Race | White | + + + | Ethnic Group | Not or | + + + Author + + + | Author | [facility] | + + + | Organization | [facility] | + + + | Address | Unknown | + + + | Phone | Unavailable | + + + Support + + +---------+ + | Name | Relationship | Address | Phone | + + +---------+ + | Freeman Mcdonnell | ECON | Unknown | | + + +---------+ + Care Team Providers + +------+ + | Care Steam Pipe Fitter Name | Role | Phone | + [...] | | | [address] | [place], [place] | | | | | Mailcode: [id number] | [address] | | | | | Outpatient Clinic | [phone] | | | | | [facility], Room 4300 | | | | | | [place], [place] | | | | | | [address] | | | | | | [phone] | | | +--------+ + + + [...] | | | | MNT) | [place] [address] CLINICAL | | | | | | [...] Visiting | | | | | | [id number] | | | | | | [place], | | | | | | [place] [id number] | | | | | | Diagnostician: [...] [facility] | [address], [address] | [place] [address] | | | DERMATOPATHOLOGY | [address] | | | + + + + + documented in this encounter Visit Diagnoses Not on filedocumented in this encounter"
--- OUTSIDE RECORDS SUMMARY | ~2019-01-12 | XMS | Encounter Summary ---
Demographics + + + | Address | [address] | | | [place] [address] | + + + | Home Phone [...] Author + + + | Author | [facility] | + + + | Organization | [facility] | + + + | Address | Unknown | + + + | Phone | Unavailable | + + + Support + + +---------+ + | Name | Relationship | Address | Phone | + + +---------+ + | Freeman Mcdonnell | ECON | Unknown | | + + +---------+ + Care Team Providers + +------+ + | Care Double Ending Machine Operator Name | Role | Phone [...] Head and Neck | [address] [facility] | | | | | Surgery Services at | [facility] | | | | | [address] [facility] | [place] [address] | | | | | [address] | [phone] | | | | | Mailcode: PV01 | | | | | | [facility] | | | | | | [place], [place] | | | | | | [address] | | | | | | [phone] | | | +--------+ + + + [...]
--- OUTSIDE RECORDS SUMMARY | 2019-01-12 15:46 | XMS ---
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 EKeith VISIT COUNT (12 MO.) 1 [facility] [address] [place] [address] TOTAL 2 NOTE: Visits indicate total known visits. ED/UCC VISIT TRACKING (12 MO.) 01/12/2019 15:45 [place]AN [place] TYPE: Emergency COMPLAINT: - RIGHT ELBOW PAIN 01/12/2019 12:52 [facility] [place] TYPE: Emergency INPATIENT VISIT TRACKING (12 MO.) No inpatient visits to display in this time frame [email or web address]
[2019-01-12] MEDS ORDERED: ESTRADIOL1 EAC6 TD (15:54)
[2019-01-12] MEDS ORDERED: PROTONIX20 MG PO (15:54)
[2019-01-12] MEDS ORDERED: LEVOTHYROXINE137 MCG PO (15:54)
[2019-01-12] MEDS ORDERED: NORCO 5-325 TA1 EACH PO (16:37)
[2019-01-12] MEDS ORDERED: NAPROXEN500 M1 PO (18:06)
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
== END 2019-01-12 19:41 | disposition home or self-care (01) ==
LOC: ED 15:44
DX: S53.124A Posterior dislocation of right ulnohumeral joint, initial encounter (principal); V80.010A Animal-rider injured by fall from or being thrown from horse in noncollision accident, initial encounter; J45.909 Unspecified asthma, uncomplicated; Z88.8 Allergy status to other drugs, medicaments and biological substances; Z79.899 Other long term (current) drug therapy
CPT/HCPCS: 24600; 73070; 99152; 99283-25; J1170; J1885; J2704; J7030

== ENCOUNTER 2020-08-18 05:45 | Day surgery (SDC) | payer BC ==
--- NOTE | 2020-08-15 10:36 | NUR ---
PHONE PRE-ADMIT COMPLETED ATTHIS TIME. ALL QUESTIONS ANSWERED AND PT WILL OBTAIN LABS AND COVID TEST IN [place].
[~2020-08-18] VITALS: Ht 185.4 cm; Wt 72.7 kg
--- NOTE | ~2020-08-18 | OR ---
[facility] [address], [place] [address] Draft DATE OF OPERATION: 08/18/2020 SURGEON: Babatunde Chaney MD PREOPERATIVE DIAGNOSES: 1. Chronic frontal sinusitis. 2. Chronic ethmoiditis. 3. Chronic sphenoiditis. 4. Chronic maxillary sinusitis. 5. Chronic sinus headaches. 6. Nasal obstruction. 7. Deviated nasal septum. 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 POSTOPERATIVE DIAGNOSES: 1. Chronic frontal sinusitis. 2. Chronic ethmoiditis. 3. Chronic sphenoiditis. 4. Chronic maxillary sinusitis. 5. Chronic sinus headaches. 6. Nasal obstruction. 7. Deviated nasal septum. 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 PROCEDURES: 1. Bilateral endoscopic frontal ethmoidectomy, 45858-09. 2. Nasal septoplasty, 34413. 3. Bilateral endoscopic sphenoidotomies, 44816-13. 4. Bilateral endoscopic maxillary antrostomies, 82872-28. INDICATIONS: This 65-year-old female has had 40 years or more sinus headaches and more of late progressive nasal obstruction. These headaches were referable to most of the sinus pain patterns. The CT scan as part of evaluation showed a large septal spur digging into the lateral nasal wall on the left side. She had apparent accessory ostia bilaterally noted in the maxillary sinuses, which is an indication of sinus disease from long-standing duration and thickening inflammatory tissue noted up in the ethmoid labyrinth. The patient has tried medical treatment in all possible ways most of her life without success, was hoping that the surgery would help her worsening symptoms of chronic sinusitis. PATIENT NAME: LISSETTE NEWBERRY OPERATIVE REPORT DATE OF : 59 REPORT #: [id number] PHYSICIAN: BABATUNDE CHANEY MD PCP: JOVANA ANTUNEZ NP REPORT IS CONFIDENTIAL AND NOT TO BE RELEASED WITHOUT AUTHORIZATION [facility] [address] [place] [id number] Draft DESCRIPTION OF PROCEDURE: The patient was placed in the supine position, had an orotracheal intubation, placed under general anesthesia. The surgical field had photographs taken preoperatively, intraoperatively, and postoperatively. Beginning on the right side because the septal deviation was on the left, the middle turbinates and uncinate process were injected with 1.5 mL 1% lidocaine 1:100,000 epinephrine. The anterior-inferior portion of the middle turbinate was then trimmed away with a Thru-Cut ethmoid punch and the microdebrider and Kerrison forceps. The sickle knife was used to incise the uncinate process and it was removed with backbiting forceps, Thru-Cut ethmoid punch, and the microdebrider. The accessory ostium also was entered with the backbiting forceps, removing all of the common bone between that and the natural ostium, so that they were communicating with each other and would stop the recirculation, which is an issue with these patients. The ethmoid labyrinth was opened with a curette and then with a Thru-Cut ethmoid punch, complete ethmoidectomy was done. A transethmoid sphenoidotomy was performed and then once the ceiling to the sphenoid sinus could be seen, the rostrum of the sphenoid was removed with Kerrison forceps right up to the base of skull. Using that dissection plane coming forward, a complete ethmoidectomy was performed. The frontal sinus was closed off by inflammatory disease and a sagittal wall of an obstructing ethmoid air cell. This common wall was removed and the sinus Kerrison forceps insinuated and the beak of the frontal sinus completely removed, opening in up very widely and improved the drainage with the ostium into the frontal sinus by 100 fold at least. Septum was then repaired injecting with a few mL of lidocaine and 3 mL of 0.5% Marcaine 1:200,000 epinephrine. The incision was made with a #15 blade on the left side and a sharp caudal dissection tool used to dissect down into the submucoperichondrial plane. This was switched over with the dull edge of the caudal dissection tool lifting it up completely. The bone was from cartilage first of all with a Jayme D-knife and then the septal button knife followed by blunt dissection on the contralateral surface of the bone. This deviated bone was then cut with Backer scissors more inferiorly where the large spur was located. Another inferior tunnel was made lifting up the mucosa over that very sharp spur, then backer scissors on the top to release it from the perpendicular plate and chisel and mallet on the bottom side, removing a very large spur. The flaps were then based together with 4-0 gut and the anterior incision closed with 4-0 chromic. Complete sinus surgery was done on the left side just as well as on the right. Again, an accessory ostium was noted after injecting another 0.5 mL or 1 mL of the lidocaine solution in the middle turbinate of the uncinate process. It was completely removed with a backbiting forceps joining the maxillary ostium with the natural ostium. A little bit of the anterior inferior portion of middle turbinate was trimmed away. Then, a complete ethmoidectomy done just like on the right side with a transostial sphenoidotomy, this time into the sphenoid sinus. Once that was opened up and then some of those posterior-most ethmoid air cells opened up to the base of skull, the scope was traded to a 70-degree scope and complete dissection of the base of skull PATIENT NAME: LISSETTE NEWBERRY OPERATIVE REPORT DATE OF : 59 REPORT #: [id number] PHYSICIAN: BABATUNDE CHANEY MD PCP: JOVANA ANTUNEZ NP REPORT IS CONFIDENTIAL AND NOT TO BE RELEASED WITHOUT AUTHORIZATION [facility] [address], [place] [address] Draft done very delicately going up into the frontal sinus. The frontal sinus on the left side likewise the one on the right was a lateral pneumatization with the anlage of the frontal sinus being very small. Again, that frontal sinus was widely opened with the Kerrison frontal sinus punch removing the beak and then after delicately removing all the shards of bone and ragged mucosa trimming it. Nasal pore was placed on both sides to help prevent lateralization of the middle turbinates, but no packing was required. Little mupirocin ointment was placed in the nasal pore. The patient was awakened, sent to recovery room in good condition. The patient's blood loss was only about 20 mL. Visualization was excellent. The patient went to recovery room in good condition. No complications. Babatunde Chaney MD [facility] /[id number] Copies: ~ PATIENT NAME: LISSETTE NEWBERRY OPERATIVE REPORT DATE OF : 59 REPORT #: [id number] PHYSICIAN: BABATUNDE CHANEY MD PCP: JOVANA ANTUNEZ NP REPORT IS CONFIDENTIAL AND NOT TO BE RELEASED WITHOUT AUTHORIZATION
[~2020-08-18 05:45] MED LIST: ESTRADIOL1 EAC6 TD; HYDROCODON-ACE1 EA11 PO; LEVOTHYROXINE137 MCG PO; LEXAPRO10 MG PO; MULTIVITAMINS1 EAC7 PO; NAPROXEN500 M1 PO; NORCO 5-325 TA1 EACH PO; PROTONIX20 MG PO; SUDAFED 12 HOU120 MG PO; TRIAMCINOLONE A15 G3 TOP; VENTOLIN HFA18 GM INH; VITAMIN B COMP1 EAC1 PO; VITAMIN C100 MG PO; ZYRTEC10 MG PO
[2020-08-18] MEDS ORDERED: VITAMIN D3 COM1 EACH PO (06:04)
--- NOTE | 2020-08-18 09:58 | NUR ---
08/18/20 0958 MarthaTessy Yany 0931: PT ARRIVES TO [facility] FOR RECOVERY VIA STRETCHER. RESPONDS TO VERBAL STIMULI. VSS, O2 SATS >98% ON 6L VIA FACEMASK. GAUZE AND TAPE PLACED OF NARES. 0940: PT AWAKE ON AND OFF, OXYGEN REMOVED AND PT REMAINS STABLE >98% ON RA. RESP EVEN AND UNLABORED. STATES "I JUST WANT TO SLEEP" DENIES PAIN AND NAUSEA 0956: VSS REMAINS STABLE, CONTS TO SAT >97% ON RA. RESP EVEN AND UNLABORED. AWAKE ON AND OFF AND STATES INCREASING PAIN. REQUESTING RX. ADMINISTERED ORDERED, SEE PT EMAR
--- NOTE | 2020-08-18 10:34 | NUR ---
1030 PT BACK FROM PACU COMPLAINS OF PAIN PUDDING AND WATER GIVEN WITH PAIN PILL. TOLERATES WELL.
--- NOTE | 2020-08-18 11:08 | NUR ---
1100 CALLED TRAMADOL RX TO [facility], PT REPORTS PAIN IS NOT MUCH BETTER, 2 TYLENAL GIVEN.
--- NOTE | 2020-08-18 12:27 | NUR ---
1210 PT UP TO BATHROOM WITHOUT ASSIST SHE WAS ABLE TO VOID, URINE YELLOW AND CLEAR. DISCHARGE INSTRUCTIONS GIVEN TO PT AND BOTH VOICED UNDERSTANDING
== END 2020-08-18 12:25 | disposition home or self-care (01) ==
LOC: DS 05:45 → OPS 05:45 → DS 06:45 → OPS 12:25
PROVIDERS: ATTEND Otolaryngology
PROC: 09SM0ZZ Reposition Nasal Septum, Open Approach (ICD-10-PCS; 2020-08-18)
PROC: 09TV8ZZ Resection of Left Ethmoid Sinus, Via Natural or Artificial Opening Endoscopic (ICD-10-PCS; principal; 2020-08-18 06:45)
PROC: 09TU8ZZ Resection of Right Ethmoid Sinus, Via Natural or Artificial Opening Endoscopic (ICD-10-PCS; 2020-08-18 06:45)
DX: J32.8 Other chronic sinusitis (principal); J34.89 Other specified disorders of nose and nasal sinuses; J34.2 Deviated nasal septum; E07.9 Disorder of thyroid, unspecified; K21.9 Gastro-esophageal reflux disease without esophagitis; Z79.890 Hormone replacement therapy; Z79.899 Other long term (current) drug therapy; Z88.5 Allergy status to narcotic agent
CPT/HCPCS: 00160; J1100; J2001; J2405; J2704; J3010; J7121